=== PATIENT | male | born 1960 | race African-American/Black ===

== ENCOUNTER 2018-08-01 22:27 | Inpatient (IN) | payer OTHER ==
[~2018-08-01] VITALS: Ht 180.3 cm; Wt 63.7 kg
[2018-08-01 23:11] LABS: BASO % 0 % (0-3); EOS # 0.2 x10^3/uL (0.0-0.7); EOS % 3 % (0-3); HEMATOCRIT 43.9 % (39.0-53.0); HEMOGLOBIN 14.5 g/dL (13.0-17.5); LYMPH # 0.9 x10^3/uL (1.0-4.8); LYMPH % 15 % (24-48); MEAN CORPUSCULAR HEMOGLOBIN 32 pg (25-35); MEAN CORPUSCULAR HGB CONC 33 g/dL (31-37); MEAN CORPUSCULAR VOLUME 96 fL (79-100); MONO # 0.5 x10^3/uL (0.0-1.1); MONO % 8 % (0-9); NEUT # 4.3 x10^3uL (1.8-7.7); NEUT % 74 % (31-73); PLATELET COUNT 207 x10^3/uL (140-400); RED BLOOD COUNT 4.59 x10^6/uL (4.30-5.70); WHITE BLOOD COUNT 5.9 x10^3/uL (4.0-11.0)
[2018-08-01 23:20] LABS: CALCIUM 9.2 mg/dL (8.5-10.1); CREATININE 0.8 mg/dL (0.7-1.3); GFR 119.3; POTASSIUM 4.6 mmol/L (3.5-5.1)
[2018-08-01 23:26] LABS: ALBUMIN 3.6 g/dL (3.4-5.0); ALBUMIN/GLOBULIN RATIO 0.7 (1.0-1.7); MAGNESIUM 1.7 mg/dL (1.8-2.4); TOTAL BILIRUBIN 0.3 mg/dL (0.2-1.0); TOTAL PROTEIN 8.6 g/dL (6.4-8.2)
--- NOTE | 2018-08-01 23:26 | RAD ---
PQRS Compliance statement: One or more of the following individualized dose reduction techniques were utilized for this examination: 1. Automated exposure control. 2. Adjustment of the mA and/or kV according to patient size. 3. Use of iterative reconstruction technique. Indication:ams; drug abuse TECHNIQUE: CT head without IV contrast COMPARISON:None FINDINGS: No pathologic extra-axial or intra-axial fluid collection. The ventricles and basal cisterns are within normal limits. No acute intracranial bleed. No focal loss of hayes-white differentiation. Orbits are within normal limits. No suspicious calvarial lesion or acute calvarial fractures. Visualized paranasal sinuses and mastoid air cells are clear. IMPRESSION: No acute intracranial process. Indication:ams; drug abuse TECHNIQUE: CT of the cervical spine without IV contrast with multiplanar reformats. COMPARISON:None FINDINGS: Cervical spine is in normal anatomic alignment. Atlantoaxial joint interval is preserved with moderate degenerative changes. No compression deformities. Facet joints are in normal anatomic alignment with multilevel moderate facet arthropathy. No acute fractures. Noncontrast appearance of the neck soft tissue is within normal limits. IMPRESSION: 1. No acute fractures. 2. Multilevel mild degenerative disc disease with moderate facet arthropathy. Electronically signed by: Jose J So DO (08/01/2018 11:23 PM) [facility]
[2018-08-01] MEDS ORDERED: IV NORMAL SALINE 1000ML BAG 1,000 ML IV ONE (23:30)
--- NOTE | 2018-08-01 23:31 | RAD ---
Indication:AMS,WEAKNESS TECHNIQUE:Portable AP chest X-ray COMPARISON:None FINDINGS: Heart is normal in size. Lungs are clear. No pneumothorax or pleural effusion. Visualized bony thorax is within normal limits. IMPRESSION: No acute pulmonary process. Electronically signed by: Jose J So DO (08/01/2018 11:28 PM) [facility]
--- NOTE | 2018-08-01 23:42 | PHYS DOC ---
Past Medical History Past Medical History: Other Additional Past Medical Histor: CHRONIC NECK PAIN Past Surgical History: No Surgical History Alcohol Use: Heavy Additional Information: REPORTS DRINKING ETOH DAILY Drug Use: Cocaine, Marijuana, Methamphetamine, Phencyclidine Social History Narrative: PCP Adult General Chief Complaint Chief Complaint: ALTERED MENTAL STATUS [facility] HPI Patient is a 58 year old male who presents via EMS for altered mental status. Patient was found lying on the ground between 2 cars this evening. He states he was lying down to take an neck. He also had a fall earlier today where he landed on his left elbow. Patient states he used cocaine, methamphetamine, marijuana some point this afternoon. Denies any chest pain, nausea, vomiting, shortness of breath, diaphoresis. He is not complaining of any pain at this time. Review of Systems Review of Systems Constitutional: Denies fever or chills [] Eyes: Denies change in visual acuity, eye pain [] HENT: Denies nasal congestion or sore throat [] Respiratory: Denies cough or shortness of breath [] Cardiovascular: No additional information not addressed in HPI [] GI: Denies abdominal pain, nausea, vomiting. [] : Denies dysuria or hematuria [] Musculoskeletal: Denies back pain, reports left elbow and shoulder pain[] Integument: Denies rash or skin lesions [] Neurologic: Denies headache, or focal weakness[] Complete systems were reviewed and found to be within normal limits, except as documented in this note. Current Medications Current Medications Current Medications Medications (Trade) Dose Ordered Sig/Mohan Start Time Stop Time Status Last Admin Dose Admin Hydralazine HCl (Apresoline Inj) 10 mg 1X ONCE 08/02/18 01:00 08/02/18 01:01 DC 08/02/18 04:28 10 MG Labetalol HCl (Normodyne Iv Push) 20 mg 1X ONCE 08/02/18 00:30 08/02/18 00:31 DC 08/02/18 00:44 20 MG Lorazepam (Ativan) 1 mg 1X ONCE 08/02/18 00:30 08/02/18 00:31 DC 08/02/18 00:43 1 MG Magnesium Sulfate 50 ml @ 25 mls/hr 1X ONCE 08/02/18 00:30 08/02/18 02:29 DC 08/02/18 00:43 25 MLS/HR Sodium Chloride 1,000 ml @ 1,000 mls/hr 1X ONCE 08/02/18 00:30 08/02/18 01:29 Cancel Allergies Allergies Allergies Coded Allergies Type Severity Reaction Last Updated Verified No Known Drug Allergies 08/01/18 No Physical Exam Physical Exam Constitutional: Well developed, well nourished. [] HENT: Normocephalic, atraumatic. [] Eyes: PERRLA, EOMI, conjunctiva normal. [] Neck: Normal range of motion, no tenderness. [] Cardiovascular: Heart rate regular rhythm, no murmur [] Lungs & Thorax: Bilateral breath sounds clear to auscultation, no rhonchi's, Rales or wheezes. [] Abdomen: Bowel sounds normal, soft, no tenderness, no rebound rigidity or guarding. [] Skin: Warm, dry, no erythema, no rash. [] Back: No tenderness, no CVA tenderness. [] Extremities: Left elbow and shoulder tenderness with reduced range of motion, no clubbing. [] Neurologic: Alert and oriented to person and place but not time, CN 2 through 12 grossly intact bilaterally, no focal neurological deficit. [] Psychologic: Disoriented, lethargic[] Current Patient Data Vital Signs Vital Signs Date Time Temp Pulse Resp B/P (MAP) Pulse Ox O2 Delivery O2 Flow Rate FiO2 08/02/18 00:53 88 16 87 08/02/18 00:44 224/84 08/02/18 00:25 97.4 97.4 08/01/18 22:28 Room Air Lab Values Laboratory Tests Test 08/01/18 23:00 08/02/18 00:30 White Blood Count 5.9 x10^3/uL (4.0-11.0) Red Blood Count 4.59 x10^6/uL (4.30-5.70) Hemoglobin 14.5 g/dL (13.0-17.5) Hematocrit 43.9 % (39.0-53.0) Mean Corpuscular Volume 96 fL (79-100) Mean Corpuscular Hemoglobin 32 pg (25-35) Mean Corpuscular Hemoglobin Concent 33 g/dL (31-37) Red Cell Distribution Width 14.0 % (11.5-14.5) Platelet Count 207 x10^3/uL (140-400) Neutrophils (%) (Auto) 74 % (31-73) H Lymphocytes (%) (Auto) 15 % (24-48) L Monocytes (%) (Auto) 8 % (0-9) Eosinophils (%) (Auto) 3 % (0-3) Basophils (%) (Auto) 0 % (0-3) Neutrophils # (Auto) 4.3 x10^3uL (1.8-7.7) Lymphocytes # (Auto) 0.9 x10^3/uL (1.0-4.8) L Monocytes # (Auto) 0.5 x10^3/uL (0.0-1.1) Eosinophils # (Auto) 0.2 x10^3/uL (0.0-0.7) Basophils # (Auto) 0.0 x10^3/uL (0.0-0.2) Prothrombin Time 13.0 SEC (11.7-14.0) Prothrombin Time INR 1.0 (0.8-1.1) PTT 21 SEC (24-38) L Sodium Level 139 mmol/L (136-145) Potassium Level 4.6 mmol/L (3.5-5.1) Chloride Level 99 mmol/L (98-107) Carbon Dioxide Level 32 mmol/L (21-32) Anion Gap 8 (6-14) Blood Urea Nitrogen 16 mg/dL (8-26) Creatinine 0.8 mg/dL (0.7-1.3) Estimated GFR (Cockcroft-Gault) 119.3 BUN/Creatinine Ratio 20 (6-20) Glucose Level 129 mg/dL (70-99) H Lactic Acid Level 3.5 mmol/L (0.4-2.0) H Calcium Level 9.2 mg/dL (8.5-10.1) Magnesium Level 1.7 mg/dL (1.8-2.4) L Total Bilirubin 0.3 mg/dL (0.2-1.0) Aspartate Amino Transferase (AST) 18 U/L (15-37) Alanine Aminotransferase (ALT) 37 U/L (16-63) Alkaline Phosphatase 148 U/L (46-116) H Total Protein 8.6 g/dL (6.4-8.2) H Albumin 3.6 g/dL (3.4-5.0) Albumin/Globulin Ratio 0.7 (1.0-1.7) L Ethyl Alcohol Level < 10 mg/dL (0-10) Urine Collection Type U cath Urine Color Yellow Urine Clarity Cloudy Urine pH 5.5 Urine Specific [place] 1.020 Urine Protein 100 mg/dL (NEG-TRACE) Urine Glucose (UA) Negative mg/dL (NEG) Urine Ketones (Stick) Negative mg/dL (NEG) Urine Blood Small (NEG) Urine Nitrite Negative (NEG) Urine Bilirubin Negative (NEG) Urine Urobilinogen Dipstick 1.0 mg/dL (0.2 mg/dL) Urine Leukocyte Esterase Negative (NEG) Urine RBC 11-20 /HPF (0-2) Urine WBC 1-4 /HPF (0-4) Urine Squamous Epithelial Cells None /LPF Urine Amorphous Sediment Present /HPF Urine Bacteria 0 /HPF (0-FEW) Urine Hyaline Casts Many /HPF Urine Mucus Marked /LPF Urine Opiates Screen Neg (NEG) Urine Methadone Screen Neg (NEG) Urine Barbiturates Neg (NEG) Urine Phencyclidine Screen Pos (NEG) Urine Amphetamine/Methamphetamine Neg (NEG) Urine Benzodiazepines Screen Neg (NEG) Urine Cocaine Screen Neg (NEG) Urine Cannabinoids Screen Neg (NEG) Urine Ethyl Alcohol Neg (NEG) Laboratory Tests 08/01/18 23:00 Laboratory Tests 08/01/18 23:00 EKG EKG @2246 NSR at 93bpm, NO ST elevation, baseline artifact/wandering baseline, q wave V2 Radiology/Procedures Radiology/Procedures PROCEDURE: CT HEAD AND CERVICAL SPINE WO PQRS Compliance statement: One or more of the following individualized dose reduction techniques were utilized for this examination: 1. Automated exposure control. 2. Adjustment of the mA and/or kV according to patient size. 3. Use of iterative reconstruction technique. Indication:ams; drug abuse TECHNIQUE: CT head without IV contrast COMPARISON:None FINDINGS: No pathologic extra-axial or intra-axial fluid collection. The ventricles and basal cisterns are within normal limits. No acute intracranial bleed. No focal loss of hayes-white differentiation. Orbits are within normal limits. No suspicious calvarial lesion or acute calvarial fractures. Visualized paranasal sinuses and mastoid air cells are clear. IMPRESSION: No acute intracranial process. Indication:ams; drug abuse TECHNIQUE: CT of the cervical spine without IV contrast with multiplanar reformats. COMPARISON:None FINDINGS: Cervical spine is in normal anatomic alignment. Atlantoaxial joint interval is preserved with moderate degenerative changes. No compression deformities. Facet joints are in normal anatomic alignment with multilevel moderate facet arthropathy. No acute fractures. Noncontrast appearance of the neck soft tissue is within normal limits. IMPRESSION: 1. No acute fractures. 2. Multilevel mild degenerative disc disease with moderate facet arthropathy. Electronically signed by: Jose J So DO (08/01/2018 11:23 PM) [facility] PROCEDURE: CHEST AP ONLY Indication:AMS,WEAKNESS TECHNIQUE:Portable AP chest X-ray COMPARISON:None FINDINGS: Heart is normal in size. Lungs are clear. No pneumothorax or pleural effusion. Visualized bony thorax is within normal limits. IMPRESSION: No acute pulmonary process. Electronically signed by: Jose J So DO (08/01/2018 11:28 PM) [facility] DICTATED and SIGNED BY: JOSE J SO DO PROCEDURE: SHOULDER 2+V LEFT 4 view left elbow HISTORY: Pain and drug abuse AP lateral oblique and radial head views of the left elbow were obtained The visualized osseous structures appear normal. IMPRESSION: No acute findings. End impression 2 views left shoulder: AP and Y views The visualized osseous structures appear normal. The glenohumeral relationship is normal. IMPRESSION: No acute findings. Electronically signed by: Justina Husain III, MD (08/02/2018 2:13 AM) [facility] [place] DICTATED and SIGNED BY: JUSTINA HUSAIN III, MD PROCEDURE: ELBOW LEFT 3V 4 view left elbow HISTORY: Pain and drug abuse AP lateral oblique and radial head views of the left elbow were obtained The visualized osseous structures appear normal. IMPRESSION: No acute findings. End impression 2 views left shoulder: AP and Y views The visualized osseous structures appear normal. The glenohumeral relationship is normal. IMPRESSION: No acute findings. Electronically signed by: Justina Husain III, MD (08/02/2018 2:13 AM) [facility] [place] DICTATED and SIGNED BY: JUSTINA HUSAIN III, MD[] Course & Med Decision Making Course & Med Decision Making 58-year-old male presented to the ER via EMS after being found lying between 2 [place] a park. Patient was brought to room and evaluated. Initially found to be hypothermic. Bearhugger and warming blankets were placed on patient. Patient did report using multiple drugs. Pertinent Labs and Imaging studies reviewed. Patient was hypertensive therefore given blood pressure medication to help control pressure. Breathing treatments initiated for intermittent hypoxia. Patient requiring admission for further evaluation and treatment. Discussed with (hospitalist) who is in agreement with admission. Discussed findings and plan with patient and family, who acknowledge understanding and agreement.( See chart for details) [] Dragon Disclaimer Dragon Disclaimer This electronic medical record was generated, in whole or in part, using a voice recognition dictation system. Departure Departure Referrals: UNKNOWN PCP NAME (PCP) GRAHAM GARCIA DO Aug 01, 2018 23:42
[2018-08-02] MEDS ORDERED: IV NORMAL SALINE 1000ML BAG 1,000 ML IV ONE ×2 (00:15→00:30)
[2018-08-02] MEDS ORDERED: MAGNESIUM SULFATE 2GM 50 ML IV ONE ×2 (00:30→10:00)
[2018-08-02] MEDS ORDERED: LABETALOL 20 MG/4 ML DISP.SYRIN. IVP ONE (00:30)
[2018-08-02 00:42] LABS: BILIRUBIN,URINE NEGATIVE (NEG); CLARITY,URINE CLOUDY; COLOR,URINE YELLOW; NITRITE,URINE NEGATIVE (NEG); PH,URINE 5.5; PROTEIN,URINE 100 mg/dL (NEG-TRACE)
[2018-08-02 00:49] LABS: AMPHETAMINE/METHAMPHETAMINE NEG (NEG); BARBITURATES NEG (NEG); BENZODIAZEPINES NEG (NEG); CANNABINOIDS NEG (NEG); COCAINE NEG (NEG); METHADONE NEG (NEG); OPIATES NEG (NEG); PHENCYCLIDINE POS (NEG)
[2018-08-02 00:53] LABS: BACTERIA,URINE 0 /HPF (0-FEW)
[2018-08-02 00:54] LABS: AMORPHOUS SEDIMENT,UR PRESENT /HPF; HYALINE CASTS, URINE MANY /HPF
[2018-08-02] MEDS ORDERED: hydrALAZINE 20 MG/ML VIAL. IVP ONE ×2 (01:00→06:30)
--- NOTE | 2018-08-02 02:16 | RAD ---
4 view left elbow HISTORY: Pain and drug abuse AP lateral oblique and radial head views of the left elbow were obtained The visualized osseous structures appear normal. IMPRESSION: No acute findings. End impression 2 views left shoulder: AP and Y views The visualized osseous structures appear normal. The glenohumeral relationship is normal. IMPRESSION: No acute findings. Electronically signed by: Owen Lew III, MD (08/02/2018 2:13 AM) [facility]
[2018-08-02] MEDS ORDERED: ONDANSETRON PF 4 MG/2 ML VIAL. IV PRN ×2 (04:00→10:00)
[2018-08-02] MEDS: ALBUTEROL SULFATE 2.5 MG/3 ML NEBU. NEB PRN (04:35)
[2018-08-02] MEDS ORDERED: NITROGLYCERIN OINT 1 GM PACKET. ONE (04:46)
[2018-08-02] MEDS ORDERED: NITROGLYCERIN OINT 1 GM PACKET. TP ONE (05:00)
--- NOTE | 2018-08-02 05:56 | EKG ---
[facility] [address] [place] [address] Test Date: 2018-08-01 Test Time: 22:46:02 Pat Name: DIANE CABRERA Department: Room: 650 1 Gender: M Mental Health Director: : 1960 Requested By: GRAHAM GARCIA Order Number: [id number] Reading MD: Cooper José MD Measurements Intervals [place] Rate: 93 P: 90 LA: 164 QRS: -74 QRSD: 106 T: 98 QT: 378 QTc: 473 Interpretive Statements SINUS RHYTHM LAD CONSIDER LATERAL WALL ISCHEMIA Electronically Signed On 08-02-2018 8:45:30 CDT by Cooper José MD
[2018-08-02] MEDS ORDERED: hydrALAZINE 20 MG/ML VIAL. ONE (06:12)
[2018-08-02 06:30] VITALS: BP 149/67
--- NOTE | 2018-08-02 09:03 | RAD ---
CHEST AP ONLY History: DYSPNEA. Comparison with August 01, 2018. Cardiomediastinal silhouette is stable. No evidence of pneumothorax or pleural effusion. No evidence of airspace disease. IMPRESSION: No consolidating infiltrate. Electronically signed by: Ariel Kong MD (08/02/2018 9:00 AM) [facility]
[2018-08-02] MEDS ORDERED: MULTIVIT INFUSN,ADULT 4,VIT K 10 ML, THIAMINE INJ 100 MG, FOLIC ACID INJ 1 MG in IV NOR... IV SCH (10:00)
[2018-08-02] MEDS ORDERED: MAG HYDROX/ALUMINUM HYD/SIMETH 30 ML ORAL.SUSP PO PRN (10:00)
[2018-08-02] MEDS ORDERED: guaiFENesin ORAL 200 MG/10 ML LIQUID. PO PRN (10:00)
[2018-08-02] MEDS ORDERED: DOCUSATE SODIUM 100 MG CAPSULE. PO PRN (10:00)
[2018-08-02] MEDS ORDERED: cloNIDine HCL 0.1 MG TABLET PO PRN (10:00)
[2018-08-02] MEDS ORDERED: SODIUM PHOSPHATES 19/7GM 133 ML ENEMA. PR PRN (10:00)
[2018-08-02] MEDS ORDERED: ACETAMINOPHEN 325 MG TABLET. PO PRN (10:00)
[2018-08-02] MEDS ORDERED: diphenhydrAMINE 50 MG/ML VIAL IVP PRN (10:00)
[2018-08-02] MEDS ORDERED: ZOLPIDEM 5 MG TABLET. PO PRN (10:00)
[2018-08-02] MEDS: IPRATRPIUM/ALBUTEROL 0.5/2.5MG 3 ML NEBU. NEB SCH ×4 (10:12→23:19)
[2018-08-02 10:42] LABS: BASO % 0 % (0-3); EOS # 0.1 x10^3/uL (0.0-0.7); EOS % 1 % (0-3); HEMATOCRIT 41.1 % (39.0-53.0); HEMOGLOBIN 13.4 g/dL (13.0-17.5); LYMPH # 0.9 x10^3/uL (1.0-4.8); LYMPH % 12 % (24-48); MEAN CORPUSCULAR HEMOGLOBIN 31 pg (25-35); MEAN CORPUSCULAR HGB CONC 33 g/dL (31-37); MEAN CORPUSCULAR VOLUME 96 fL (79-100); MONO # 0.5 x10^3/uL (0.0-1.1); MONO % 6 % (0-9); NEUT # 5.9 x10^3uL (1.8-7.7); NEUT % 81 % (31-73); PLATELET COUNT 228 x10^3/uL (140-400); RED BLOOD COUNT 4.29 x10^6/uL (4.30-5.70); RED CELL DISTRIBUTION WIDTH 13.8 % (11.5-14.5); WHITE BLOOD COUNT 7.4 x10^3/uL (4.0-11.0)
[2018-08-02] MEDS: methylPREDNISolone SOD SUCC PF 125 MG/2 ML VIAL. IV SCH ×3 (10:59→22:00)
[2018-08-02 11:00] VITALS: BP 156/60
[2018-08-02 11:06] LABS: ALBUMIN 3.2 g/dL (3.4-5.0); ALBUMIN/GLOBULIN RATIO 0.7 (1.0-1.7); CALCIUM 8.8 mg/dL (8.5-10.1); CREATININE 0.6 mg/dL (0.7-1.3); GFR 166.3; POTASSIUM 4.1 mmol/L (3.5-5.1); TOTAL BILIRUBIN 0.5 mg/dL (0.2-1.0); TOTAL PROTEIN 7.5 g/dL (6.4-8.2)
[2018-08-02 11:17] LABS: FREE T4 1.3 ng/dL (0.76-1.46); THYROID STIM HORMONE (TSH) 0.269 uIU/mL (0.358-3.74)
[2018-08-02] MEDS ORDERED: IPRATRPIUM/ALBUTEROL 0.5/2.5MG 3 ML NEBU. NEB SCH (12:00)
--- NOTE | 2018-08-02 12:33 | NUR ---
SS following for discharge planning. SS reviewed pt chart. Pt is from home. Pt has history of current and past substance abuse. PAT team consulted. Waldemar from the PAT team met with pt and pt declined any need for treatment at this time. Waldemar provided pt with resources for Rediscover, Narcotics Anonymous, and preferred providers with [employer]. Pt accepted resources and stated he will discharge to home.
--- NOTE | 2018-08-02 14:54 | PDOC1 ---
History and Physical Date of Admission Date of Admission 08/02/2018 Identification/Chief Complaint Chief Complaint I cannot breathe Problems: (1) Altered mental status (2) PCP abuse Source Source: Chart review, Patient History of Present Illness History of Present Illness Patient is a 58-year-old gentleman with significant past medical history for asthma who was in his usual state of health until the day prior to his admission when he indulges in some PCP with his friends. The patient was brought by his friends to the emergency department for decrease in sensorium. The patient does not recall the events that led to his admission. He is very short of breath at the time my evaluation fairly able to finish a sentence due to the respiratory distress. The patient has bronchospasm audible and increased work of breathing. Plan of care has been Explained in detail very little information can be gathered from the patient due to his acute respiratory distress. He keeps wanting to be dismissed from the hospital, given his respiratory distress I have encourage him to stay to get treated. Patient most likely inhale his PCP and gave him this bronchospasm due to his underlying reactive airway disease. No headache no blurred vision no chest pain or palpitations have been voiced by the patient no nausea vomiting no diarrhea no abdominal discomfort, no other complaints voiced during my visit is being admitted for further evaluation treatment ER history: HPI HPI Patient is a 58 year old male who presents via EMS for altered mental status. Patient was found lying on the ground between 2 cars this evening. He states he was lying down to take an neck. He also had a fall earlier today where he landed on his left elbow. Patient states he used cocaine, methamphetamine, marijuana some point this afternoon. Denies any chest pain, nausea, vomiting, shortness of breath, diaphoresis. He is not complaining of any pain at this time. Past Medical History Pulmonary: Asthma Past Surgical History Past Surgical History: No pertinent history Family History Family History: Other (reviewed and found noncontributory to the present) Social History Smoke: No ALCOHOL: none Drugs: Other (PCP) Current Medications Current Medications Current Medications Medications (Trade) Dose Ordered Sig/Mohan Start Time Stop Time Status Last Admin Dose Admin Acetaminophen (Tylenol) 650 mg PRN Q4HRS PRN 08/02/18 10:00 Al Hydroxide/Mg Hydroxide (Mylanta Plus Xs) 30 ml PRN DAILY PRN 08/02/18 10:00 Albuterol Sulfate (Ventolin Neb Soln) 2.5 mg PRN Q4HRS PRN 08/02/18 04:45 08/02/18 04:35 2.5 MG Albuterol/ Ipratropium (Duoneb) 3 ml RTQID 08/02/18 12:00 UNV Clonidine HCl (Catapres) 0.1 mg PRN Q6HRS PRN 08/02/18 10:00 Diphenhydramine HCl (Benadryl) 25 mg PRN Q4HRS PRN 08/02/18 10:00 Docusate Sodium (Colace) 100 mg PRN BID PRN 08/02/18 10:00 Guaifenesin (Robitussin) 200 mg PRN Q4HRS PRN 08/02/18 10:00 Hydralazine HCl (Apresoline Inj) 20 mg STK-MED ONCE 08/02/18 06:12 08/02/18 06:13 DC Labetalol HCl (Normodyne Iv Push) 20 mg 1X ONCE 08/02/18 00:30 08/02/18 00:31 DC 08/02/18 00:44 20 MG Lorazepam (Ativan) 2 mg PRN Q4HRS PRN 08/02/18 10:00 08/02/18 10:59 2 MG Magnesium Sulfate 50 ml @ 25 mls/hr 1X ONCE 08/02/18 10:00 08/02/18 11:59 DC Methylprednisolone Sodium Succinate (SOLU-Medrol 125MG VIAL) 125 mg Q8HRS 08/02/18 10:00 08/02/18 10:59 125 MG Multivitamins 10 ml/Thiamine HCl 100 mg/Folic Acid 1 mg/Sodium Chloride 1,011.2 ml @ 125 mls/ hr Q8H 08/02/18 10:00 08/02/18 10:28 DC 08/02/18 10:28 125 MLS/HR Nitroglycerin (Nitro-Bid Oint) 1 inch 1X ONCE 08/02/18 05:00 08/02/18 05:02 DC 08/02/18 04:50 1 INCH Ondansetron HCl (Zofran) 4 mg PRN Q4HRS PRN 08/02/18 10:00 Sodium Monofluorophosphate (Fleet Adult) 133 ml PRN DAILY PRN 08/02/18 10:00 Sodium Chloride 1,000 ml @ 1,000 mls/hr 1X ONCE 08/02/18 00:30 08/02/18 01:29 Cancel Zolpidem Tartrate (Ambien) 5 mg PRN QHS PRN 08/02/18 10:00 Allergies Allergies Allergies Coded Allergies Type Severity Reaction Last Updated Verified No Known Drug Allergies 08/01/18 No ROS Review of System CONSTITUTIONAL: No fever or chills EYES: No recent changes SKIN: No rash or itching CARDIOVASCULAR: No chest pain, syncope, palpitations, or edema RESPIRATORY: No SOB or cough GASTROINTESTINAL: No nausea, vomiting or abdominal pain NEUROLOGICAL: No headaches or weakness ENDOCRINE: No cold or heat intolerance GENITOURINARY: No urgency or frequency of urination MUSCULOSKELETAL: No back pain or joint pain LYMPHATICS: No enlarged lymph nodes PSYCHIATRIC: No anxiety or depression Physical Exam Physical Exam GEN.: No apparent distress. Alert and oriented. HEENT: Head is normocephalic, atraumatic NECK: Supple. LUNGS: Clear to auscultation. HEART: RRR, S1, S2 present. Peripheral pulses intact ABDOMEN: Soft, nontender. Positive bowel sounds. EXTREMITIES: Without any cyanosis. NEUROLOGIC: Normal speech, normal tone PSYCHIATRIC: Normal affect, normal mood. SKIN: No ulcerations Vitals Vitals Vital Signs Date Time Temp Pulse Resp B/P (MAP) Pulse Ox O2 Delivery O2 Flow Rate FiO2 08/02/18 11:00 98.0 115 18 156/60 (92) 94 98.0 08/02/18 10:02 Nasal Cannula 2.0 Labs Labs Laboratory Tests Test 08/01/18 23:00 08/02/18 00:30 08/02/18 06:25 08/02/18 10:07 White Blood Count 5.9 x10^3/uL (4.0-11.0) 7.4 x10^3/uL (4.0-11.0) Red Blood Count 4.59 x10^6/uL (4.30-5.70) 4.29 x10^6/uL (4.30-5.70) Hemoglobin 14.5 g/dL (13.0-17.5) 13.4 g/dL (13.0-17.5) Hematocrit 43.9 % (39.0-53.0) 41.1 % (39.0-53.0) Mean Corpuscular Volume 96 fL (79-100) 96 fL (79-100) Mean Corpuscular Hemoglobin 32 pg (25-35) 31 pg (25-35) Mean Corpuscular Hemoglobin Concent 33 g/dL (31-37) 33 g/dL (31-37) Red Cell Distribution Width 14.0 % (11.5-14.5) 13.8 % (11.5-14.5) Platelet Count 207 x10^3/uL (140-400) 228 x10^3/uL (140-400) Neutrophils (%) (Auto) 74 % (31-73) 81 % (31-73) Lymphocytes (%) (Auto) 15 % (24-48) 12 % (24-48) Monocytes (%) (Auto) 8 % (0-9) 6 % (0-9) Eosinophils (%) (Auto) 3 % (0-3) 1 % (0-3) Basophils (%) (Auto) 0 % (0-3) 0 % (0-3) Neutrophils # (Auto) 4.3 x10^3uL (1.8-7.7) 5.9 x10^3uL (1.8-7.7) Lymphocytes # (Auto) 0.9 x10^3/uL (1.0-4.8) 0.9 x10^3/uL (1.0-4.8) Monocytes # (Auto) 0.5 x10^3/uL (0.0-1.1) 0.5 x10^3/uL (0.0-1.1) Eosinophils # (Auto) 0.2 x10^3/uL (0.0-0.7) 0.1 x10^3/uL (0.0-0.7) Basophils # (Auto) 0.0 x10^3/uL (0.0-0.2) 0.0 x10^3/uL (0.0-0.2) Prothrombin Time 13.0 SEC (11.7-14.0) Prothromb Time International Ratio 1.0 (0.8-1.1) Activated Partial Thromboplast Time 21 SEC (24-38) Sodium Level 139 mmol/L (136-145) 138 mmol/L (136-145) Potassium Level 4.6 mmol/L (3.5-5.1) 4.1 mmol/L (3.5-5.1) Chloride Level 99 mmol/L (98-107) 101 mmol/L (98-107) Carbon Dioxide Level 32 mmol/L (21-32) 29 mmol/L (21-32) Anion Gap 8 (6-14) 8 (6-14) Blood Urea Nitrogen 16 mg/dL (8-26) 13 mg/dL (8-26) Creatinine 0.8 mg/dL (0.7-1.3) 0.6 mg/dL (0.7-1.3) Estimated GFR (Cockcroft-Gault) 119.3 166.3 BUN/Creatinine Ratio 20 (6-20) 22 (6-20) Glucose Level 129 mg/dL (70-99) 103 mg/dL (70-99) Lactic Acid Level 3.5 mmol/L (0.4-2.0) 1.4 mmol/L (0.4-2.0) Calcium Level 9.2 mg/dL (8.5-10.1) 8.8 mg/dL (8.5-10.1) Magnesium Level 1.7 mg/dL (1.8-2.4) Total Bilirubin 0.3 mg/dL (0.2-1.0) 0.5 mg/dL (0.2-1.0) Aspartate Amino Transf (AST/SGOT) 18 U/L (15-37) 20 U/L (15-37) Alanine Aminotransferase (ALT/SGPT) 37 U/L (16-63) 39 U/L (16-63) Alkaline Phosphatase 148 U/L (46-116) 129 U/L (46-116) Total Protein 8.6 g/dL (6.4-8.2) 7.5 g/dL (6.4-8.2) Albumin 3.6 g/dL (3.4-5.0) 3.2 g/dL (3.4-5.0) Albumin/Globulin Ratio 0.7 (1.0-1.7) 0.7 (1.0-1.7) Ethyl Alcohol Level < 10 mg/dL (0-10) Urine Collection Type U cath Urine Color Yellow Urine Clarity Cloudy Urine pH 5.5 Urine Specific [place] 1.020 Urine Protein 100 mg/dL (NEG-TRACE) Urine Glucose (UA) Negative mg/dL (NEG) Urine Ketones (Stick) Negative mg/dL (NEG) Urine Blood Small (NEG) Urine Nitrite Negative (NEG) Urine Bilirubin Negative (NEG) Urine Urobilinogen Dipstick 1.0 mg/dL (0.2 mg/dL) Urine Leukocyte Esterase Negative (NEG) Urine RBC 11-20 /HPF (0-2) Urine WBC 1-4 /HPF (0-4) Urine Squamous Epithelial Cells None /LPF Urine Amorphous Sediment Present /HPF Urine Bacteria 0 /HPF (0-FEW) Urine Hyaline Casts Many /HPF Urine Mucus Marked /LPF Urine Opiates Screen Neg (NEG) Urine Methadone Screen Neg (NEG) Urine Barbiturates Neg (NEG) Urine Phencyclidine Screen Pos (NEG) Urine Amphetamine/Methamphetamine Neg (NEG) Urine Benzodiazepines Screen Neg (NEG) Urine Cocaine Screen Neg (NEG) Urine Cannabinoids Screen Neg (NEG) Urine Ethyl Alcohol Neg (NEG) Troponin I Quantitative < 0.017 ng/mL (0.000-0.055) 0.020 ng/mL (0.000-0.055) NG-Exs-K-Type Natriuretic Peptide 180 pg/mL (0-124) Vitamin B12 Level 495 pg/mL (247-911) Thyroid Stimulating Hormone (TSH) 0.269 uIU/mL (0.358-3.74) Free Thyroxine 1.30 ng/dL (0.76-1.46) Laboratory Tests Test 08/01/18 23:00 08/02/18 00:30 08/02/18 06:25 08/02/18 10:07 White Blood Count 5.9 x10^3/uL (4.0-11.0) 7.4 x10^3/uL (4.0-11.0) Red Blood Count 4.59 x10^6/uL (4.30-5.70) 4.29 x10^6/uL (4.30-5.70) Hemoglobin 14.5 g/dL (13.0-17.5) 13.4 g/dL (13.0-17.5) Hematocrit 43.9 % (39.0-53.0) 41.1 % (39.0-53.0) Mean Corpuscular Volume 96 fL (79-100) 96 fL (79-100) Mean Corpuscular Hemoglobin 32 pg (25-35) 31 pg (25-35) Mean Corpuscular Hemoglobin Concent 33 g/dL (31-37) 33 g/dL (31-37) Red Cell Distribution Width 14.0 % (11.5-14.5) 13.8 % (11.5-14.5) Platelet Count 207 x10^3/uL (140-400) 228 x10^3/uL (140-400) Neutrophils (%) (Auto) 74 % (31-73) 81 % (31-73) Lymphocytes (%) (Auto) 15 % (24-48) 12 % (24-48) Monocytes (%) (Auto) 8 % (0-9) 6 % (0-9) Eosinophils (%) (Auto) 3 % (0-3) 1 % (0-3) Basophils (%) (Auto) 0 % (0-3) 0 % (0-3) Neutrophils # (Auto) 4.3 x10^3uL (1.8-7.7) 5.9 x10^3uL (1.8-7.7) Lymphocytes # (Auto) 0.9 x10^3/uL (1.0-4.8) 0.9 x10^3/uL (1.0-4.8) Monocytes # (Auto) 0.5 x10^3/uL (0.0-1.1) 0.5 x10^3/uL (0.0-1.1) Eosinophils # (Auto) 0.2 x10^3/uL (0.0-0.7) 0.1 x10^3/uL (0.0-0.7) Basophils # (Auto) 0.0 x10^3/uL (0.0-0.2) 0.0 x10^3/uL (0.0-0.2) Prothrombin Time 13.0 SEC (11.7-14.0) Prothromb Time International Ratio 1.0 (0.8-1.1) Activated Partial Thromboplast Time 21 SEC (24-38) Sodium Level 139 mmol/L (136-145) 138 mmol/L (136-145) Potassium Level 4.6 mmol/L (3.5-5.1) 4.1 mmol/L (3.5-5.1) Chloride Level 99 mmol/L (98-107) 101 mmol/L (98-107) Carbon Dioxide Level 32 mmol/L (21-32) 29 mmol/L (21-32) Anion Gap 8 (6-14) 8 (6-14) Blood Urea Nitrogen 16 mg/dL (8-26) 13 mg/dL (8-26) Creatinine 0.8 mg/dL (0.7-1.3) 0.6 mg/dL (0.7-1.3) Estimated GFR (Cockcroft-Gault) 119.3 166.3 BUN/Creatinine Ratio 20 (6-20) 22 (6-20) Glucose Level 129 mg/dL (70-99) 103 mg/dL (70-99) Lactic Acid Level 3.5 mmol/L (0.4-2.0) 1.4 mmol/L (0.4-2.0) Calcium Level 9.2 mg/dL (8.5-10.1) 8.8 mg/dL (8.5-10.1) Magnesium Level 1.7 mg/dL (1.8-2.4) Total Bilirubin 0.3 mg/dL (0.2-1.0) 0.5 mg/dL (0.2-1.0) Aspartate Amino Transf (AST/SGOT) 18 U/L (15-37) 20 U/L (15-37) Alanine Aminotransferase (ALT/SGPT) 37 U/L (16-63) 39 U/L (16-63) Alkaline Phosphatase 148 U/L (46-116) 129 U/L (46-116) Total Protein 8.6 g/dL (6.4-8.2) 7.5 g/dL (6.4-8.2) Albumin 3.6 g/dL (3.4-5.0) 3.2 g/dL (3.4-5.0) Albumin/Globulin Ratio 0.7 (1.0-1.7) 0.7 (1.0-1.7) Ethyl Alcohol Level < 10 mg/dL (0-10) Urine Collection Type U cath Urine Color Yellow Urine Clarity Cloudy Urine pH 5.5 Urine Specific [place] 1.020 Urine Protein 100 mg/dL (NEG-TRACE) Urine Glucose (UA) Negative mg/dL (NEG) Urine Ketones (Stick) Negative mg/dL (NEG) Urine Blood Small (NEG) Urine Nitrite Negative (NEG) Urine Bilirubin Negative (NEG) Urine Urobilinogen Dipstick 1.0 mg/dL (0.2 mg/dL) Urine Leukocyte Esterase Negative (NEG) Urine RBC 11-20 /HPF (0-2) Urine WBC 1-4 /HPF (0-4) Urine Squamous Epithelial Cells None /LPF Urine Amorphous Sediment Present /HPF Urine Bacteria 0 /HPF (0-FEW) Urine Hyaline Casts Many /HPF Urine Mucus Marked /LPF Urine Opiates Screen Neg (NEG) Urine Methadone Screen Neg (NEG) Urine Barbiturates Neg (NEG) Urine Phencyclidine Screen Pos (NEG) Urine Amphetamine/Methamphetamine Neg (NEG) Urine Benzodiazepines Screen Neg (NEG) Urine Cocaine Screen Neg (NEG) Urine Cannabinoids Screen Neg (NEG) Urine Ethyl Alcohol Neg (NEG) Troponin I Quantitative < 0.017 ng/mL (0.000-0.055) 0.020 ng/mL (0.000-0.055) HI-Xzg-S-Type Natriuretic Peptide 180 pg/mL (0-124) Vitamin B12 Level 495 pg/mL (247-911) Thyroid Stimulating Hormone (TSH) 0.269 uIU/mL (0.358-3.74) Free Thyroxine 1.30 ng/dL (0.76-1.46) VTE Prophylaxis Ordered VTE Prophylaxis Devices: No VTE Pharmacological Prophylaxi: Yes Assessment/Plan Assessment/Plan Altered mental status secondary to BCP use currently result Acute hypoxemic respiratory failure secondary to severe bronchospasm Reactive airway disease/asthma polysubstance drug abuse Plan: We'll start steroids and will give nebulization therapy Counseling done regarding the noxious effect of drugs especially inhaled ones given his reactive airway disease Encourage oral intake Reassess in the a.m. Further recommendations based on the clinical course AZALIA SEGURA MD Aug 02, 2018 14:54
[2018-08-02 15:00] VITALS: BP 150/66
[2018-08-02 19:30] VITALS: BP 144/67
--- NOTE | 2018-08-02 19:46 | NUR ---
Patient started becoming verbally aggressive around 1700 this evening. Attempts were made to find him a place that he could discharge to. He stated that we was in acute rehab and wants to go back. After finding the facility that we was rehabilitating in, they stated that he left yesterday evening in a van with an unknown female to do drugs. Once he never came back, they discharged him AMA. The nursing quality assurance supervisor there stated that they will not accept the patient back. After searching for family members, his was finally able to be reached via telephone. She stated that she will come and pick the patient up and take him home. Dr. Arthur was contacted via telephone by this RN and given a verbal order to discharge the patient. At this time his has not shown up to pick him up but she states that she is coming. The patient is patiently waiting for his . The situation has been explained to ULYSSES Oh who is taking him tonight and she is will handle his care from here on. Nursing quality assurance supervisor Jeannie has assisted in the situation and we are working to get him home.
[2018-08-02] MEDS: LORazepam 0.5 MG TABLET PO PRN (20:01)
[2018-08-02] MEDS ORDERED: HALOPERIDOL 5 MG TABLET. PO PRN (21:45)
[2018-08-02] MEDS ORDERED: MELOXICAM 7.5 MG TABLET PO ONE (22:00)
[2018-08-03] MEDS: IPRATRPIUM/ALBUTEROL 0.5/2.5MG 3 ML NEBU. NEB SCH ×2 (03:57→08:12)
[2018-08-03] MEDS: ALBUTEROL SULFATE 2.5 MG/3 ML NEBU. NEB PRN (05:27)
[2018-08-03] MEDS: methylPREDNISolone SOD SUCC PF 125 MG/2 ML VIAL. IV SCH (05:47)
[2018-08-03 06:50] VITALS: BP 133/70
[2018-08-03] MEDS: LORazepam 0.5 MG TABLET PO PRN (07:17)
[2018-08-03] MEDS ORDERED: MELOXICAM 7.5 MG TABLET PO SCH (09:00)
--- NOTE | 2018-08-03 09:33 | PDOC3 ---
Discharge Summary Visit Information Date of Admission: Aug 02, 2018 Date of Discharge: Aug 03, 2018 Admitting Diagnosis: PCP abuse Final Diagnosis Altered mental status secondary to BCP use currently result Acute hypoxemic respiratory failure secondary to severe bronchospasm Reactive airway disease/asthma polysubstance drug abuse Brief Hospital Course Allergies Allergies Coded Allergies Type Severity Reaction Last Updated Verified No Known Drug Allergies 08/01/18 No Vital Signs Vital Signs Date Time Temp Pulse Resp B/P (MAP) Pulse Ox O2 Delivery O2 Flow Rate FiO2 08/03/18 08:13 97 Room Air 08/03/18 06:50 98.0 116 16 133/70 (91) 98.0 08/02/18 20:15 2.0 Lab Results Laboratory Tests Test 08/01/18 23:00 08/02/18 00:30 08/02/18 06:25 08/02/18 10:07 White Blood Count 5.9 x10^3/uL (4.0-11.0) 7.4 x10^3/uL (4.0-11.0) Red Blood Count 4.59 x10^6/uL (4.30-5.70) 4.29 x10^6/uL (4.30-5.70) Hemoglobin 14.5 g/dL (13.0-17.5) 13.4 g/dL (13.0-17.5) Hematocrit 43.9 % (39.0-53.0) 41.1 % (39.0-53.0) Mean Corpuscular Volume 96 fL (79-100) 96 fL (79-100) Mean Corpuscular Hemoglobin 32 pg (25-35) 31 pg (25-35) Mean Corpuscular Hemoglobin Concent 33 g/dL (31-37) 33 g/dL (31-37) Red Cell Distribution Width 14.0 % (11.5-14.5) 13.8 % (11.5-14.5) Platelet Count 207 x10^3/uL (140-400) 228 x10^3/uL (140-400) Neutrophils (%) (Auto) 74 % (31-73) 81 % (31-73) Lymphocytes (%) (Auto) 15 % (24-48) 12 % (24-48) Monocytes (%) (Auto) 8 % (0-9) 6 % (0-9) Eosinophils (%) (Auto) 3 % (0-3) 1 % (0-3) Basophils (%) (Auto) 0 % (0-3) 0 % (0-3) Neutrophils # (Auto) 4.3 x10^3uL (1.8-7.7) 5.9 x10^3uL (1.8-7.7) Lymphocytes # (Auto) 0.9 x10^3/uL (1.0-4.8) 0.9 x10^3/uL (1.0-4.8) Monocytes # (Auto) 0.5 x10^3/uL (0.0-1.1) 0.5 x10^3/uL (0.0-1.1) Eosinophils # (Auto) 0.2 x10^3/uL (0.0-0.7) 0.1 x10^3/uL (0.0-0.7) Basophils # (Auto) 0.0 x10^3/uL (0.0-0.2) 0.0 x10^3/uL (0.0-0.2) Prothrombin Time 13.0 SEC (11.7-14.0) Prothromb Time International Ratio 1.0 (0.8-1.1) Activated Partial Thromboplast Time 21 SEC (24-38) Sodium Level 139 mmol/L (136-145) 138 mmol/L (136-145) Potassium Level 4.6 mmol/L (3.5-5.1) 4.1 mmol/L (3.5-5.1) Chloride Level 99 mmol/L (98-107) 101 mmol/L (98-107) Carbon Dioxide Level 32 mmol/L (21-32) 29 mmol/L (21-32) Anion Gap 8 (6-14) 8 (6-14) Blood Urea Nitrogen 16 mg/dL (8-26) 13 mg/dL (8-26) Creatinine 0.8 mg/dL (0.7-1.3) 0.6 mg/dL (0.7-1.3) Estimated GFR (Cockcroft-Gault) 119.3 166.3 BUN/Creatinine Ratio 20 (6-20) 22 (6-20) Glucose Level 129 mg/dL (70-99) 103 mg/dL (70-99) Lactic Acid Level 3.5 mmol/L (0.4-2.0) 1.4 mmol/L (0.4-2.0) Calcium Level 9.2 mg/dL (8.5-10.1) 8.8 mg/dL (8.5-10.1) Magnesium Level 1.7 mg/dL (1.8-2.4) Total Bilirubin 0.3 mg/dL (0.2-1.0) 0.5 mg/dL (0.2-1.0) Aspartate Amino Transf (AST/SGOT) 18 U/L (15-37) 20 U/L (15-37) Alanine Aminotransferase (ALT/SGPT) 37 U/L (16-63) 39 U/L (16-63) Alkaline Phosphatase 148 U/L (46-116) 129 U/L (46-116) Total Protein 8.6 g/dL (6.4-8.2) 7.5 g/dL (6.4-8.2) Albumin 3.6 g/dL (3.4-5.0) 3.2 g/dL (3.4-5.0) Albumin/Globulin Ratio 0.7 (1.0-1.7) 0.7 (1.0-1.7) Ethyl Alcohol Level < 10 mg/dL (0-10) Urine Collection Type U cath Urine Color Yellow Urine Clarity Cloudy Urine pH 5.5 Urine Specific [place] 1.020 Urine Protein 100 mg/dL (NEG-TRACE) Urine Glucose (UA) Negative mg/dL (NEG) Urine Ketones (Stick) Negative mg/dL (NEG) Urine Blood Small (NEG) Urine Nitrite Negative (NEG) Urine Bilirubin Negative (NEG) Urine Urobilinogen Dipstick 1.0 mg/dL (0.2 mg/dL) Urine Leukocyte Esterase Negative (NEG) Urine RBC 11-20 /HPF (0-2) Urine WBC 1-4 /HPF (0-4) Urine Squamous Epithelial Cells None /LPF Urine Amorphous Sediment Present /HPF Urine Bacteria 0 /HPF (0-FEW) Urine Hyaline Casts Many /HPF Urine Mucus Marked /LPF Urine Opiates Screen Neg (NEG) Urine Methadone Screen Neg (NEG) Urine Barbiturates Neg (NEG) Urine Phencyclidine Screen Pos (NEG) Urine Amphetamine/Methamphetamine Neg (NEG) Urine Benzodiazepines Screen Neg (NEG) Urine Cocaine Screen Neg (NEG) Urine Cannabinoids Screen Neg (NEG) Urine Ethyl Alcohol Neg (NEG) Troponin I Quantitative < 0.017 ng/mL (0.000-0.055) 0.020 ng/mL (0.000-0.055) OD-Lfc-C-Type Natriuretic Peptide 180 pg/mL (0-124) Vitamin B12 Level 495 pg/mL (247-911) Thyroid Stimulating Hormone (TSH) 0.269 uIU/mL (0.358-3.74) Free Thyroxine 1.30 ng/dL (0.76-1.46) Laboratory Tests Test 08/02/18 10:07 White Blood Count 7.4 x10^3/uL (4.0-11.0) Red Blood Count 4.29 x10^6/uL (4.30-5.70) Hemoglobin 13.4 g/dL (13.0-17.5) Hematocrit 41.1 % (39.0-53.0) Mean Corpuscular Volume 96 fL (79-100) Mean Corpuscular Hemoglobin 31 pg (25-35) Mean Corpuscular Hemoglobin Concent 33 g/dL (31-37) Red Cell Distribution Width 13.8 % (11.5-14.5) Platelet Count 228 x10^3/uL (140-400) Neutrophils (%) (Auto) 81 % (31-73) Lymphocytes (%) (Auto) 12 % (24-48) Monocytes (%) (Auto) 6 % (0-9) Eosinophils (%) (Auto) 1 % (0-3) Basophils (%) (Auto) 0 % (0-3) Neutrophils # (Auto) 5.9 x10^3uL (1.8-7.7) Lymphocytes # (Auto) 0.9 x10^3/uL (1.0-4.8) Monocytes # (Auto) 0.5 x10^3/uL (0.0-1.1) Eosinophils # (Auto) 0.1 x10^3/uL (0.0-0.7) Basophils # (Auto) 0.0 x10^3/uL (0.0-0.2) Sodium Level 138 mmol/L (136-145) Potassium Level 4.1 mmol/L (3.5-5.1) Chloride Level 101 mmol/L (98-107) Carbon Dioxide Level 29 mmol/L (21-32) Anion Gap 8 (6-14) Blood Urea Nitrogen 13 mg/dL (8-26) Creatinine 0.6 mg/dL (0.7-1.3) Estimated GFR (Cockcroft-Gault) 166.3 BUN/Creatinine Ratio 22 (6-20) Glucose Level 103 mg/dL (70-99) Calcium Level 8.8 mg/dL (8.5-10.1) Total Bilirubin 0.5 mg/dL (0.2-1.0) Aspartate Amino Transf (AST/SGOT) 20 U/L (15-37) Alanine Aminotransferase (ALT/SGPT) 39 U/L (16-63) Alkaline Phosphatase 129 U/L (46-116) Troponin I Quantitative 0.020 ng/mL (0.000-0.055) Total Protein 7.5 g/dL (6.4-8.2) Albumin 3.2 g/dL (3.4-5.0) Albumin/Globulin Ratio 0.7 (1.0-1.7) Vitamin B12 Level 495 pg/mL (247-911) Thyroid Stimulating Hormone (TSH) 0.269 uIU/mL (0.358-3.74) Free Thyroxine 1.30 ng/dL (0.76-1.46) Brief Hospital Course Patient is a 58-year-old gentleman with significant past medical history for asthma who was in his usual state of health until the day prior to his admission when he indulges in some PCP with his friends. The patient was brought by his friends to the emergency department for decrease in sensorium. The patient does not recall the events that led to his admission. He is very short of breath at the time my evaluation fairly able to finish a sentence due to the respiratory distress. The patient has bronchospasm audible and increased work of breathing. Plan of care has been Explained in detail very little information can be gathered from the patient due to his acute respiratory distress. He keeps wanting to be dismissed from the hospital, given his respiratory distress I have encourage him to stay to get treated. Patient most likely inhale his PCP and gave him this bronchospasm due to his underlying reactive airway disease. No headache no blurred vision no chest pain or palpitations have been voiced by the patient no nausea vomiting no diarrhea no abdominal discomfort, no other complaints voiced during my visit is being admitted for further evaluation treatment Patietn admitted for bronchospasm as a consequence ofo his substance use. He is adamant about collecting his debit card from the rehab he just left against medical advice. Patient quesada snot seem to have family but he sasy she will reach out to a friend who will help him out. Patient will be evaluated prior to dismissal in order to establish he will not have a bad outcome, I have strongly recommend against continue use of illegal substances especially inhale once in light of his reactive airway disease. Patient does not have a list of medications. I have also strongly recommended following up with his primary care physician within one week. He is at increased risk for readmission. His habits and poor functional status. He is medically optimized and in hemodynamically stable condition for dismissal Discharge Information Condition at Discharge: Improved Follow Up: Weeks Disposition/Orders: D/C to Home Miscellaneous Medications Info (No Known Medications Prior To Admisstion) Each, 1 EACH , (Reported) Entered as Reported by: ROBERT AUGUSTE on 08/01/182249 Last Action: New Order on 08/01/182249 by AZALIA ARMENTA MD Aug 03, 2018 09:33
--- NOTE | 2018-08-03 11:09 | NUR ---
Discharge Note: pt discharged home with self care pt left hospital via private vehicle with son. pt stable upon discharge. DIANE CABRERA Discharge instructions reviewed with Patient and a copy given. All questions have been answered and understanding verbalized. The following instructions and handouts were given: drug and alcohol rehabilitation information and how to find help, pt was adament about not wanting to get help stated that "he was 58 years old and retired and he could do what he wanted. this nurse educated patient and son about the importance of getting help for patients addiction and follow-up with his primary care provider in 1-2 weeks.
== END 2018-08-03 11:17 | disposition home or self-care (01) | DRG 917 ==
LOC: ER 22:27 → 6 SOUTH 08-02 03:59 → 2 NORTH 08-02 06:20
PROVIDERS: ADMIT Internal Medicine; ATTEND Internal Medicine
DX: T40.991A Poisoning by other psychodysleptics [hallucinogens], accidental (unintentional), initial encounter (principal); J96.01 Acute respiratory failure with hypoxia; J68.0 Bronchitis and pneumonitis due to chemicals, gases, fumes and vapors; G89.29 Other chronic pain; F12.90 Cannabis use, unspecified, uncomplicated; F14.90 Cocaine use, unspecified, uncomplicated; W18.39XA Other fall on same level, initial encounter; Y93.89 Activity, other specified; Y92.89 Other specified places as the place of occurrence of the external cause; Y99.8 Other external cause status
CPT/HCPCS: 36415; 70450; 71045; 72125; 73030; 73080; 80053; 80307; 81001; 82607; 83605; 83735; 83880; 84439; 84443; 84484; 85025; 85610; 85730; 87040; 87086; 93005; 94640; 94760; 96361; 96365; 96366; 96375; 96376; G0480; J0360; J2060; J2930; J3475; J3490; J7030; J7613; J7620; 99285-25

== ENCOUNTER 2019-12-15 13:18 | Inpatient (IN) | payer OTHER ==
[~2019-12-15] VITALS: Ht 180.3 cm; Wt 71.2 kg
[2019-12-15 14:23] LABS: BASO % 1 % (0-3); EOS # 0.3 x10^3/uL (0.0-0.7); EOS % 5 % (0-3); HEMATOCRIT 43.2 % (39.0-53.0); HEMOGLOBIN 14.6 g/dL (13.0-17.5); LYMPH # 0.9 x10^3/uL (1.0-4.8); LYMPH % 15 % (24-48); MEAN CORPUSCULAR HEMOGLOBIN 32 pg (25-35); MEAN CORPUSCULAR HGB CONC 34 g/dL (31-37); MEAN CORPUSCULAR VOLUME 94 fL (79-100); MONO # 0.7 x10^3/uL (0.0-1.1); MONO % 12 % (0-9); NEUT # 3.9 x10^3/uL (1.8-7.7); NEUT % 67 % (31-73); PLATELET COUNT 251 x10^3/uL (140-400); RED BLOOD COUNT 4.61 x10^6/uL (4.30-5.70); RED CELL DISTRIBUTION WIDTH 13.7 % (11.5-14.5); WHITE BLOOD COUNT 5.7 x10^3/uL (4.0-11.0)
[2019-12-15] MEDS ORDERED: HYDROcodone/APAP 5/325MG 1 TAB TABLET PO ONE (14:30)
[2019-12-15 14:43] LABS: CALCIUM 8.2 mg/dL (8.5-10.1); CREATININE 0.9 mg/dL (0.7-1.3); GFR 103.8; POTASSIUM 3.3 mmol/L (3.5-5.1)
--- NOTE | 2019-12-15 14:45 | RAD ---
AP chest. HISTORY: Cough AP view was taken of the chest. The arm partially obscures the left lung base. Lungs are free of infiltrates. Heart is normal in size. There is no effusion. IMPRESSION: 1. Some limitation in evaluation of the left lung base. 2. No definite infiltrate. Electronically signed by: Sidney Blackburn MD (12/15/2019 2:42 PM) [id number]
[2019-12-15 14:49] LABS: ALBUMIN/GLOBULIN RATIO 0.8 (1.0-1.7); C-REACTIVE PROTEIN 33.6 mg/L (0-3.3); TOTAL BILIRUBIN 0.4 mg/dL (0.2-1.0); TOTAL PROTEIN 6.8 g/dL (6.4-8.2)
--- NOTE | 2019-12-15 15:55 | EKG ---
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
--- NOTE | 2019-12-15 16:05 | PHYS DOC ---
Past Medical History Past Medical History: COPD, Hypertension, SC, Other Additional Past Medical Histor: CHRONIC NECK PAIN Past Surgical History: No Surgical History Smoking Status: Current Every Day Smoker Alcohol Use: None Drug Use: Phencyclidine General Adult EDM: Chief Complaint: SHORTNESS OF BREATH HPI: HPI: Patient is a 59 year old [f__sex] who presents with [] Review of Systems: Review of Systems: General: Denies fever, chills, sweats, fatigue Eyes: Denies drainage, blurred vision, eye redness HENT: Denies rhinorrhea, sore throat, earache Respiratory: Denies cough, wheezing. Reports shortness of breath Cardiac: Denies edema, palpitations. Reports chest pain GI: Denies abdominal pain, Nausea, vomiting MSK: Denies back pain, neck pain Skin: Denies rash, jaundice Neuro: Denies headache, dizziness Psychiatric: Denies SI/HI Heart Score: Risk Factors: Risk Factors: DM, Current or recent (<one month) smoker, HTN, HLP, family history of CAD, obesity. Risk Scores: Score 0 - 3: 2.5% MACE over next 6 weeks - Discharge Home Score 4 - 6: 20.3% MACE over next 6 weeks - Admit for Clinical Observation Score 7 - 10: 72.7% MACE over next 6 weeks - Early Invasive Strategies Current Medications: Current Medications Medications (Trade) Dose Ordered Sig/Mohan Start Time Stop Time Status Last Admin Dose Admin Acetaminophen/ Hydrocodone Bitart (Lortab 5/325) 1 tab 1X ONCE 12/15/19 14:30 12/15/19 14:31 DC 12/15/19 14:39 1 TAB Allergies: Allergies: Allergies Coded Allergies Type Severity Reaction Last Updated Verified No Known Drug Allergies 08/01/18 No Physical Exam: PE: General: Awake, alert, NAD. Well Nourished, well hydrated. Cooperative HEENT: Atraumatic, EOMI, PERRL, airway patent, moist oral mucosa Neck: Supple, trachea midline Respiratory: CTA bilaterally, normal effort, no wheezing/crackles CV: RRR, no murmur, cap refill <2 GI: Soft, nondistended, nontender, no masses MSK: Right arm c contractures Skin: Warm, dry, intact Neuro: A&O x3, speech NL Psych: Normal affect, normal mood, not suicidal or homicidal Current Patient Data: Labs: Laboratory Tests Test 12/15/19 14:10 White Blood Count 5.7 x10^3/uL (4.0-11.0) Red Blood Count 4.61 x10^6/uL (4.30-5.70) Hemoglobin 14.6 g/dL (13.0-17.5) Hematocrit 43.2 % (39.0-53.0) Mean Corpuscular Volume 94 fL (79-100) Mean Corpuscular Hemoglobin 32 pg (25-35) Mean Corpuscular Hemoglobin Concent 34 g/dL (31-37) Red Cell Distribution Width 13.7 % (11.5-14.5) Platelet Count 251 x10^3/uL (140-400) Neutrophils (%) (Auto) 67 % (31-73) Lymphocytes (%) (Auto) 15 % (24-48) L Monocytes (%) (Auto) 12 % (0-9) H Eosinophils (%) (Auto) 5 % (0-3) H Basophils (%) (Auto) 1 % (0-3) Neutrophils # (Auto) 3.9 x10^3/uL (1.8-7.7) Lymphocytes # (Auto) 0.9 x10^3/uL (1.0-4.8) L Monocytes # (Auto) 0.7 x10^3/uL (0.0-1.1) Eosinophils # (Auto) 0.3 x10^3/uL (0.0-0.7) Basophils # (Auto) 0.0 x10^3/uL (0.0-0.2) D-Dimer (Janette) 0.34 ug/mlFEU (0.00-0.50) Sodium Level 144 mmol/L (136-145) Potassium Level 3.3 mmol/L (3.5-5.1) L Chloride Level 106 mmol/L (98-107) Carbon Dioxide Level 32 mmol/L (21-32) Anion Gap 6 (6-14) Blood Urea Nitrogen 16 mg/dL (8-26) Creatinine 0.9 mg/dL (0.7-1.3) Estimated GFR (Cockcroft-Gault) 103.8 BUN/Creatinine Ratio 18 (6-20) Glucose Level 119 mg/dL (70-99) H Calcium Level 8.2 mg/dL (8.5-10.1) L Total Bilirubin 0.4 mg/dL (0.2-1.0) Aspartate Amino Transferase (AST) 14 U/L (15-37) L Alanine Aminotransferase (ALT) 21 U/L (16-63) Alkaline Phosphatase 112 U/L (46-116) Lactate Dehydrogenase 176 U/L (85-227) Creatine Kinase 64 U/L (39-308) Troponin I Quantitative < 0.017 ng/mL (0.000-0.055) C-Reactive Protein, Quantitative 33.6 mg/L (0-3.3) H YQ-Oop-W-Type Natriuretic Peptide 367 pg/mL (0-124) H Total Protein 6.8 g/dL (6.4-8.2) Albumin 3.0 g/dL (3.4-5.0) L Albumin/Globulin Ratio 0.8 (1.0-1.7) L Laboratory Tests 12/15/19 14:10 Laboratory Tests 12/15/19 14:10 Vital Signs: Vital Signs Date Time Temp Pulse Resp B/P (MAP) Pulse Ox O2 Delivery O2 Flow Rate FiO2 12/15/19 14:39 22 98 Room Air 12/15/19 13:40 98.2 95 141/62 (88) 98.2 EKG: EKG: [] Radiology/Procedures: Radiology/Procedures: [] Course & Med Decision Making: Course & Med Decision Making Pertinent Labs and Imaging studies reviewed. (See chart for details) Patient is a 59-year-old male who presents to the emergency room complaining of chest pressure and shortness of breath. He is had some chronic pain but feels that this is different than usual. He has been living in abandoned houses and is unable to take care of himself. He signed himself out of a living facility because he did not feel it was safe and has been working with his insurance company to try to get placement. Patient be admitted for chest pain. Work-up is negative. COVID test was done. I have discussed his case with case management will talk to his insurance about possible placement. Dragon Disclaimer: Dragon Disclaimer: This electronic medical record was generated, in whole or in part, using a voice recognition dictation system. Departure Departure Impression: Primary Impression: Chest pain Additional Impression: Difficulty with activities of daily living Disposition: ADMITTED INPATIENT Condition: STABLE Referrals: UNKNOWN PCP NAME (PCP) Justicifation of Admission Dx: Justifications for Admission: Justification of Admission Dx: Yes ASHLEY BOATENG MD Dec 15, 2019 16:05
--- NOTE | 2019-12-15 16:27 | EKG ---
[facility] [address] [place] [address] Test Date: 2019-12-15 Test Time: 14:17:00 Pat Name: DIANE CABRERA Department: Room: Gender: M [employer]er: : 1960 Requested By: ASHLEY BOATENG Order Number: [id number] Reading MD: Cooper José MD Measurements Intervals [place] Rate: 94 P: 90 [place]: 174 QRS: -74 QRSD: 94 T: 100 QT: 356 QTc: 451 Interpretive Statements SINUS RHYTHM LVH CHRONIC NON-SPECIFIC CHANGES. Electronically Signed On 12-16-2019 14:43:12 CDT by Cooper José MD
--- NOTE | 2019-12-15 18:51 | PDOC1 ---
History and Physical Date of Admission Date of Admission DATE: 12/15/19 TIME: 18:51 Identification/Chief Complaint Chief Complaint arm and chest pain History of Present Illness History of Present Illness Mr. Guerrero, is a 59-year-old male admit for arm pain, and chest pain. he also complains of pressure and shortness of breath. He is had some chronic pain but feels that this is different than usual. He has been living in abandoned houses and is unable to take care of himself. He signed himself out of a living facility because he did not feel it was safe and has been working with his insurance company to try to get placement. . COVID test done and he will be admitted as PUI. muscle pain in arms possible Past Medical History Cardiovascular: No pertinent hx Pulmonary: No pertinent hx Social History Smoke: <1 pack per day ALCOHOL: social Drugs: None Current Problem List Problem List Problems Medical Problems: (1) Chest pain Status: Acute (2) Difficulty with activities of daily living Status: Acute Current Medications Current Medications Current Medications Acetaminophen/ Hydrocodone Bitart (Lortab 5/325) 1 tab 1X ONCE PO Last administered on 12/15/19at 14:39; Start 12/15/19 at 14:30; Stop 12/15/19 at 14:31; Status DC Active Scripts Active Reported No Known Medications Prior To Admisstion (Info) Each 1 Each Allergies Allergies: Coded Allergies: No Known Drug Allergies (Unverified , 08/01/18) ROS General: YES: Chills, Fatigue; No: Night Sweats, Malaise, Appetite, Other PSYCHOLOGICAL ROS: YES: Sleep disturbances; No: Anxiety, Behavioral Disorder, Concentration difficultie, Decreased libido, Depression, Disorientation, Hallucinations, Hostility, Irritablity, Memory difficulties, Mood Swings, Obsessive thoughts, Physical abuse, Suicidal ideation, Other Eyes: No Blurry vision, No Decreased vision, No Double vision, No Dry eyes, No Excessive tearing, No Eye Pain, No Itchy Eyes, No Loss of vision, No Photophobia, No Scotomata, No Uses contacts, No Uses glasses, No Other HEENT: No: Heacaches, Visual Changes, Hearing change, Nasal congestion, Nasal discharge, Oral lesions, Sinus pain, Sore Throat, Epistaxis, Sneezing, Snoring, Tinnitus, Vertigo, Vocal changes, Other Respiratory: YES: Cough, SOB with excertion; No: Hemoptysis, Orthopnea, Pleuritic Pain, Shortness of breath, Sputum Changes, Stridor, Tachypnea, Wheezing, Other Cardiovascular: yes Chest Pain, yes Edema; No Palpitations, No Orthopnea, No Paroxysmal Noc. Dyspnea, No Lt Headedness, No Other Gastrointestinal: Yes Nausea; No Vomiting, No Abdominal Pain, No Diarrhea, No Constipation, No Melena, No Hematochezia, No Other Genitourinary: No Dysuria, No Frequency, No Incontinence, No Hematuria, No Retention, No Discharge, No Urgency, No Pain, No Flank Pain, No Other, No , No , No , No , No , No , No Musculoskeletal: Yes Joint Pain, Yes Joint Stiffness, Yes Muscle Pain, Yes Pain In: Neurological: No Behavorial Changes, No Bowel/Bladder ControlChng, No Confusion, No Dizziness, No Gait Disturbance, No Headaches, No Impaired Coord/balance, No Memory Loss, No Numbness/Tingling, No Seizures, No Speech Problems, No Tremors, No Visual Changes, No Weakness, No Other Skin: Yes Dry Skin; No Eczema, No Hair Changes, No Lumps, No Mole Changes, No Mottling, No Nail Changes, No Pruritus, No Rash, No Skin Lesion Changes, No Other, No Acne Physical Exam General: Alert, Cooperative, mild distress HEENT: Atraumatic, PERRLA Lungs: Other (rales, mod vol) Abdomen: Soft Extremities: No cyanosis Skin: No rashes, Other (dry, flaking skin) Neuro: Sensation intact Psych/Mental Status: Mood NL Vitals Vitals Vital Signs Date Time Temp Pulse Resp B/P (MAP) Pulse Ox O2 Delivery O2 Flow Rate FiO2 12/15/19 15:28 80 20 144/66 (92) 98 Room Air 12/15/19 13:40 98.2 98.2 Labs Labs Laboratory Tests Test 12/15/19 14:10 White Blood Count 5.7 x10^3/uL (4.0-11.0) Red Blood Count 4.61 x10^6/uL (4.30-5.70) Hemoglobin 14.6 g/dL (13.0-17.5) Hematocrit 43.2 % (39.0-53.0) Mean Corpuscular Volume 94 fL (79-100) Mean Corpuscular Hemoglobin 32 pg (25-35) Mean Corpuscular Hemoglobin Concent 34 g/dL (31-37) Red Cell Distribution Width 13.7 % (11.5-14.5) Platelet Count 251 x10^3/uL (140-400) Neutrophils (%) (Auto) 67 % (31-73) Lymphocytes (%) (Auto) 15 % (24-48) Monocytes (%) (Auto) 12 % (0-9) Eosinophils (%) (Auto) 5 % (0-3) Basophils (%) (Auto) 1 % (0-3) Neutrophils # (Auto) 3.9 x10^3/uL (1.8-7.7) Lymphocytes # (Auto) 0.9 x10^3/uL (1.0-4.8) Monocytes # (Auto) 0.7 x10^3/uL (0.0-1.1) Eosinophils # (Auto) 0.3 x10^3/uL (0.0-0.7) Basophils # (Auto) 0.0 x10^3/uL (0.0-0.2) D-Dimer (Janette) 0.34 ug/mlFEU (0.00-0.50) Sodium Level 144 mmol/L (136-145) Potassium Level 3.3 mmol/L (3.5-5.1) Chloride Level 106 mmol/L (98-107) Carbon Dioxide Level 32 mmol/L (21-32) Anion Gap 6 (6-14) Blood Urea Nitrogen 16 mg/dL (8-26) Creatinine 0.9 mg/dL (0.7-1.3) Estimated GFR (Cockcroft-Gault) 103.8 BUN/Creatinine Ratio 18 (6-20) Glucose Level 119 mg/dL (70-99) Calcium Level 8.2 mg/dL (8.5-10.1) Total Bilirubin 0.4 mg/dL (0.2-1.0) Aspartate Amino Transf (AST/SGOT) 14 U/L (15-37) Alanine Aminotransferase (ALT/SGPT) 21 U/L (16-63) Alkaline Phosphatase 112 U/L (46-116) Lactate Dehydrogenase 176 U/L (85-227) Creatine Kinase 64 U/L (39-308) Troponin I Quantitative < 0.017 ng/mL (0.000-0.055) C-Reactive Protein, Quantitative 33.6 mg/L (0-3.3) SU-Qwg-S-Type Natriuretic Peptide 367 pg/mL (0-124) Total Protein 6.8 g/dL (6.4-8.2) Albumin 3.0 g/dL (3.4-5.0) Albumin/Globulin Ratio 0.8 (1.0-1.7) Laboratory Tests Test 12/15/19 14:10 White Blood Count 5.7 x10^3/uL (4.0-11.0) Red Blood Count 4.61 x10^6/uL (4.30-5.70) Hemoglobin 14.6 g/dL (13.0-17.5) Hematocrit 43.2 % (39.0-53.0) Mean Corpuscular Volume 94 fL (79-100) Mean Corpuscular Hemoglobin 32 pg (25-35) Mean Corpuscular Hemoglobin Concent 34 g/dL (31-37) Red Cell Distribution Width 13.7 % (11.5-14.5) Platelet Count 251 x10^3/uL (140-400) Neutrophils (%) (Auto) 67 % (31-73) Lymphocytes (%) (Auto) 15 % (24-48) Monocytes (%) (Auto) 12 % (0-9) Eosinophils (%) (Auto) 5 % (0-3) Basophils (%) (Auto) 1 % (0-3) Neutrophils # (Auto) 3.9 x10^3/uL (1.8-7.7) Lymphocytes # (Auto) 0.9 x10^3/uL (1.0-4.8) Monocytes # (Auto) 0.7 x10^3/uL (0.0-1.1) Eosinophils # (Auto) 0.3 x10^3/uL (0.0-0.7) Basophils # (Auto) 0.0 x10^3/uL (0.0-0.2) D-Dimer (Janette) 0.34 ug/mlFEU (0.00-0.50) Sodium Level 144 mmol/L (136-145) Potassium Level 3.3 mmol/L (3.5-5.1) Chloride Level 106 mmol/L (98-107) Carbon Dioxide Level 32 mmol/L (21-32) Anion Gap 6 (6-14) Blood Urea Nitrogen 16 mg/dL (8-26) Creatinine 0.9 mg/dL (0.7-1.3) Estimated GFR (Cockcroft-Gault) 103.8 BUN/Creatinine Ratio 18 (6-20) Glucose Level 119 mg/dL (70-99) Calcium Level 8.2 mg/dL (8.5-10.1) Total Bilirubin 0.4 mg/dL (0.2-1.0) Aspartate Amino Transf (AST/SGOT) 14 U/L (15-37) Alanine Aminotransferase (ALT/SGPT) 21 U/L (16-63) Alkaline Phosphatase 112 U/L (46-116) Lactate Dehydrogenase 176 U/L (85-227) Creatine Kinase 64 U/L (39-308) Troponin I Quantitative < 0.017 ng/mL (0.000-0.055) C-Reactive Protein, Quantitative 33.6 mg/L (0-3.3) FI-Vgs-E-Type Natriuretic Peptide 367 pg/mL (0-124) Total Protein 6.8 g/dL (6.4-8.2) Albumin 3.0 g/dL (3.4-5.0) Albumin/Globulin Ratio 0.8 (1.0-1.7) VTE Prophylaxis Ordered VTE Prophylaxis Devices: No VTE Pharmacological Prophylaxi: Yes Assessment/Plan Assessment/Plan cough, weakness, arm pain, chest pain admit to r/o COVID 19, seen in full PPE will also check for ACS, repeat trop in AM, give proph lvoenox, he fels too weak and short of breath to go home, complains of severe pain Justicifation of Admission Dx: Justifications for Admission: Justification of Admission Dx: Yes JUSTINO RAINES MD Dec 15, 2019 18:51
[2019-12-15] MEDS ORDERED: MORPHINE SULFATE 4 MG/ML VIAL. IV PRN (20:00)
[2019-12-15] MEDS ORDERED: ZOLPIDEM 5 MG TABLET. PO PRN (20:00)
[2019-12-15] MEDS ORDERED: CYCLOBENZAPRINE 10 MG TABLET. PO PRN (20:00)
[2019-12-15] MEDS ORDERED: NICOTINE 21MG PATCH. TD PRN (20:00)
[2019-12-15 20:51] VITALS: BP 153/66
[2019-12-15] MEDS: oxyCODONE/APAP 5/325 1 TAB TABLET PO PRN (21:14)
[2019-12-15] MEDS ORDERED: POTASSIUM CHLORIDE 20 MEQ TABLET.ER. PO ONE (21:30)
[2019-12-15 23:48] VITALS: BP 155/70
[2019-12-16] MEDS: oxyCODONE/APAP 5/325 1 TAB TABLET PO PRN ×4 (01:36→21:57)
[2019-12-16 03:50] VITALS: BP 146/61
[2019-12-16 04:22] LABS: BASO % 0 % (0-3); EOS # 0.3 x10^3/uL (0.0-0.7); EOS % 5 % (0-3); HEMATOCRIT 42.2 % (39.0-53.0); HEMOGLOBIN 14.1 g/dL (13.0-17.5); LYMPH # 1.2 x10^3/uL (1.0-4.8); LYMPH % 19 % (24-48); MEAN CORPUSCULAR HEMOGLOBIN 31 pg (25-35); MEAN CORPUSCULAR HGB CONC 33 g/dL (31-37); MEAN CORPUSCULAR VOLUME 94 fL (79-100); MONO # 0.7 x10^3/uL (0.0-1.1); MONO % 11 % (0-9); NEUT # 3.9 x10^3/uL (1.8-7.7); NEUT % 64 % (31-73); PLATELET COUNT 238 x10^3/uL (140-400); RED BLOOD COUNT 4.49 x10^6/uL (4.30-5.70); RED CELL DISTRIBUTION WIDTH 13.9 % (11.5-14.5); WHITE BLOOD COUNT 6.1 x10^3/uL (4.0-11.0)
[2019-12-16 04:44] LABS: ALBUMIN 2.9 g/dL (3.4-5.0); ALBUMIN/GLOBULIN RATIO 0.9 (1.0-1.7); CREATININE 0.6 mg/dL (0.7-1.3); GFR 165.7; TOTAL BILIRUBIN 0.2 mg/dL (0.2-1.0); TOTAL PROTEIN 6.2 g/dL (6.4-8.2)
[2019-12-16 07:40] VITALS: BP 156/67
[2019-12-16] MEDS: ENOXAPARIN 40 MG/0.4 ML SYRINGE. SQ SCH (08:42)
--- NOTE | 2019-12-16 10:49 | PDOC ---
PROGRESS NOTES Date of Service: DATE: 12/16/19 TIME: 10:49 Chief Complaint Chief Complaint VTE Prophylaxis Ordered VTE Prophylaxis Devices: No VTE Pharmacological Prophylaxi: Yes Assessment/Plan cough, weakness, arm pain, chest pain admit to r/o COVID 19, seen in full PPE will also check for ACS, give proph lvoenox, he feels too weak and short of breath to go home, complains of severe pain D/W RN Justicifation of Admission Dx: Justicifation of Admission Dx: Justifications for Admission: Justification of Admission Dx: Yes History of Present Illness History of Present Illness History of Present Illness History of Present Illness Mr. Guerrero, is a 59-year-old male admit for arm pain, and chest pain. he also complains of pressure and shortness of breath. He is had some chronic pain but feels that this is different than usual. He has been living in abandoned houses and is unable to take care of himself. He signed himself out of a living facility because he did not feel it was safe and has been working with his insurance company to try to get placement. . COVID test done and he will be admitted as PUI. muscle pain in arms possible Past Medical History Cardiovascular: No pertinent hx Pulmonary: No pertinent hx Social History Smoke: <1 pack per day ALCOHOL: social Drugs: None Vitals Vitals Vital Signs Date Time Temp Pulse Resp B/P (MAP) Pulse Ox O2 Delivery O2 Flow Rate FiO2 12/16/19 07:40 97.0 83 20 156/67 (96) 98 Room Air 97.0 Physical Exam General: Alert, Oriented X3, Cooperative, No acute distress Heart: Regular rate Lungs: Clear Abdomen: Soft Extremities: No cyanosis Skin: No rashes, Other (dry, flaking skin) Labs LABS SEX: M EXAM STATUS: PRE ER ORD. PHYSICIAN: ASHLEY BOATENG MD REASON: cough, covid? (pt unable to lower arm for cxr due to muscle spasm) PROCEDURE: CHEST AP ONLY AP chest. HISTORY: Cough AP view was taken of the chest. The arm partially obscures the left lung base. Lungs are free of infiltrates. Heart is normal in size. There is no effusion. IMPRESSION: 1. Some limitation in evaluation of the left lung base. 2. No definite infiltrate. Electronically signed by: Sidney Blackburn MD (12/15/2019 2:42 PM) [id number] AP chest. HISTORY: Cough AP view was taken of the chest. The arm partially obscures the left lung base. Lungs are free of infiltrates. Heart is normal in size. There is no effusion. IMPRESSION: 1. Some limitation in evaluation of the left lung base. 2. No definite infiltrate. Electronically signed by: Sidney Blackburn MD (12/15/2019 2:42 PM) [id number] DICTATED and SIGNED BY: SIDNEY BLACKBURN MD DATE: 12/15/19 1442 Laboratory Tests Test 12/15/19 14:10 12/16/19 03:30 White Blood Count 5.7 x10^3/uL (4.0-11.0) 6.1 x10^3/uL (4.0-11.0) Red Blood Count 4.61 x10^6/uL (4.30-5.70) 4.49 x10^6/uL (4.30-5.70) Hemoglobin 14.6 g/dL (13.0-17.5) 14.1 g/dL (13.0-17.5) Hematocrit 43.2 % (39.0-53.0) 42.2 % (39.0-53.0) Mean Corpuscular Volume 94 fL (79-100) 94 fL (79-100) Mean Corpuscular Hemoglobin 32 pg (25-35) 31 pg (25-35) Mean Corpuscular Hemoglobin Concent 34 g/dL (31-37) 33 g/dL (31-37) Red Cell Distribution Width 13.7 % (11.5-14.5) 13.9 % (11.5-14.5) Platelet Count 251 x10^3/uL (140-400) 238 x10^3/uL (140-400) Neutrophils (%) (Auto) 67 % (31-73) 64 % (31-73) Lymphocytes (%) (Auto) 15 % (24-48) 19 % (24-48) Monocytes (%) (Auto) 12 % (0-9) 11 % (0-9) Eosinophils (%) (Auto) 5 % (0-3) 5 % (0-3) Basophils (%) (Auto) 1 % (0-3) 0 % (0-3) Neutrophils # (Auto) 3.9 x10^3/uL (1.8-7.7) 3.9 x10^3/uL (1.8-7.7) Lymphocytes # (Auto) 0.9 x10^3/uL (1.0-4.8) 1.2 x10^3/uL (1.0-4.8) Monocytes # (Auto) 0.7 x10^3/uL (0.0-1.1) 0.7 x10^3/uL (0.0-1.1) Eosinophils # (Auto) 0.3 x10^3/uL (0.0-0.7) 0.3 x10^3/uL (0.0-0.7) Basophils # (Auto) 0.0 x10^3/uL (0.0-0.2) 0.0 x10^3/uL (0.0-0.2) D-Dimer (Janette) 0.34 ug/mlFEU (0.00-0.50) Sodium Level 144 mmol/L (136-145) 142 mmol/L (136-145) Potassium Level 3.3 mmol/L (3.5-5.1) 4.0 mmol/L (3.5-5.1) Chloride Level 106 mmol/L (98-107) 106 mmol/L (98-107) Carbon Dioxide Level 32 mmol/L (21-32) 31 mmol/L (21-32) Anion Gap 6 (6-14) 5 (6-14) Blood Urea Nitrogen 16 mg/dL (8-26) 16 mg/dL (8-26) Creatinine 0.9 mg/dL (0.7-1.3) 0.6 mg/dL (0.7-1.3) Estimated GFR (Cockcroft-Gault) 103.8 165.7 BUN/Creatinine Ratio 18 (6-20) 27 (6-20) Glucose Level 119 mg/dL (70-99) 120 mg/dL (70-99) Calcium Level 8.2 mg/dL (8.5-10.1) 8.0 mg/dL (8.5-10.1) Total Bilirubin 0.4 mg/dL (0.2-1.0) 0.2 mg/dL (0.2-1.0) Aspartate Amino Transf (AST/SGOT) 14 U/L (15-37) 12 U/L (15-37) Alanine Aminotransferase (ALT/SGPT) 21 U/L (16-63) 20 U/L (16-63) Alkaline Phosphatase 112 U/L (46-116) 109 U/L (46-116) Lactate Dehydrogenase 176 U/L (85-227) Creatine Kinase 64 U/L (39-308) Troponin I Quantitative < 0.017 ng/mL (0.000-0.055) < 0.017 ng/mL (0.000-0.055) C-Reactive Protein, Quantitative 33.6 mg/L (0-3.3) [id number]-Type Natriuretic Peptide 367 pg/mL (0-124) Total Protein 6.8 g/dL (6.4-8.2) 6.2 g/dL (6.4-8.2) Albumin 3.0 g/dL (3.4-5.0) 2.9 g/dL (3.4-5.0) Albumin/Globulin Ratio 0.8 (1.0-1.7) 0.9 (1.0-1.7) Triglycerides Level 80 mg/dL (0-150) Cholesterol Level 155 mg/dL (0-200) LDL Cholesterol, Calculated 87 mg/dL (0-100) VLDL Cholesterol, Calculated 16 mg/dL (0-40) Non-HDL Cholesterol Calculated 103 mg/dL (0-129) HDL Cholesterol 52 mg/dL (40-60) Cholesterol/HDL Ratio 3.0 Assessment and Plan Assessmemt and Plan Problems Medical Problems: (1) Chest pain Status: Acute (2) Difficulty with activities of daily living Status: Acute Comment Review of Relevant I have reviewed the following items rosy (where applicable) has been applied. Labs Laboratory Tests Test 12/15/19 14:10 12/16/19 03:30 White Blood Count 5.7 x10^3/uL (4.0-11.0) 6.1 x10^3/uL (4.0-11.0) Red Blood Count 4.61 x10^6/uL (4.30-5.70) 4.49 x10^6/uL (4.30-5.70) Hemoglobin 14.6 g/dL (13.0-17.5) 14.1 g/dL (13.0-17.5) Hematocrit 43.2 % (39.0-53.0) 42.2 % (39.0-53.0) Mean Corpuscular Volume 94 fL (79-100) 94 fL (79-100) Mean Corpuscular Hemoglobin 32 pg (25-35) 31 pg (25-35) Mean Corpuscular Hemoglobin Concent 34 g/dL (31-37) 33 g/dL (31-37) Red Cell Distribution Width 13.7 % (11.5-14.5) 13.9 % (11.5-14.5) Platelet Count 251 x10^3/uL (140-400) 238 x10^3/uL (140-400) Neutrophils (%) (Auto) 67 % (31-73) 64 % (31-73) Lymphocytes (%) (Auto) 15 % (24-48) 19 % (24-48) Monocytes (%) (Auto) 12 % (0-9) 11 % (0-9) Eosinophils (%) (Auto) 5 % (0-3) 5 % (0-3) Basophils (%) (Auto) 1 % (0-3) 0 % (0-3) Neutrophils # (Auto) 3.9 x10^3/uL (1.8-7.7) 3.9 x10^3/uL (1.8-7.7) Lymphocytes # (Auto) 0.9 x10^3/uL (1.0-4.8) 1.2 x10^3/uL (1.0-4.8) Monocytes # (Auto) 0.7 x10^3/uL (0.0-1.1) 0.7 x10^3/uL (0.0-1.1) Eosinophils # (Auto) 0.3 x10^3/uL (0.0-0.7) 0.3 x10^3/uL (0.0-0.7) Basophils # (Auto) 0.0 x10^3/uL (0.0-0.2) 0.0 x10^3/uL (0.0-0.2) D-Dimer (Janette) 0.34 ug/mlFEU (0.00-0.50) Sodium Level 144 mmol/L (136-145) 142 mmol/L (136-145) Potassium Level 3.3 mmol/L (3.5-5.1) 4.0 mmol/L (3.5-5.1) Chloride Level 106 mmol/L (98-107) 106 mmol/L (98-107) Carbon Dioxide Level 32 mmol/L (21-32) 31 mmol/L (21-32) Anion Gap 6 (6-14) 5 (6-14) Blood Urea Nitrogen 16 mg/dL (8-26) 16 mg/dL (8-26) Creatinine 0.9 mg/dL (0.7-1.3) 0.6 mg/dL (0.7-1.3) Estimated GFR (Cockcroft-Gault) 103.8 165.7 BUN/Creatinine Ratio 18 (6-20) 27 (6-20) Glucose Level 119 mg/dL (70-99) 120 mg/dL (70-99) Calcium Level 8.2 mg/dL (8.5-10.1) 8.0 mg/dL (8.5-10.1) Total Bilirubin 0.4 mg/dL (0.2-1.0) 0.2 mg/dL (0.2-1.0) Aspartate Amino Transf (AST/SGOT) 14 U/L (15-37) 12 U/L (15-37) Alanine Aminotransferase (ALT/SGPT) 21 U/L (16-63) 20 U/L (16-63) Alkaline Phosphatase 112 U/L (46-116) 109 U/L (46-116) Lactate Dehydrogenase 176 U/L (85-227) Creatine Kinase 64 U/L (39-308) Troponin I Quantitative < 0.017 ng/mL (0.000-0.055) < 0.017 ng/mL (0.000-0.055) C-Reactive Protein, Quantitative 33.6 mg/L (0-3.3) AY-Wva-M-Type Natriuretic Peptide 367 pg/mL (0-124) Total Protein 6.8 g/dL (6.4-8.2) 6.2 g/dL (6.4-8.2) Albumin 3.0 g/dL (3.4-5.0) 2.9 g/dL (3.4-5.0) Albumin/Globulin Ratio 0.8 (1.0-1.7) 0.9 (1.0-1.7) Triglycerides Level 80 mg/dL (0-150) Cholesterol Level 155 mg/dL (0-200) LDL Cholesterol, Calculated 87 mg/dL (0-100) VLDL Cholesterol, Calculated 16 mg/dL (0-40) Non-HDL Cholesterol Calculated 103 mg/dL (0-129) HDL Cholesterol 52 mg/dL (40-60) Cholesterol/HDL Ratio 3.0 Laboratory Tests Test 12/15/19 14:10 12/16/19 03:30 White Blood Count 5.7 x10^3/uL (4.0-11.0) 6.1 x10^3/uL (4.0-11.0) Red Blood Count 4.61 x10^6/uL (4.30-5.70) 4.49 x10^6/uL (4.30-5.70) Hemoglobin 14.6 g/dL (13.0-17.5) 14.1 g/dL (13.0-17.5) Hematocrit 43.2 % (39.0-53.0) 42.2 % (39.0-53.0) Mean Corpuscular Volume 94 fL (79-100) 94 fL (79-100) Mean Corpuscular Hemoglobin 32 pg (25-35) 31 pg (25-35) Mean Corpuscular Hemoglobin Concent 34 g/dL (31-37) 33 g/dL (31-37) Red Cell Distribution Width 13.7 % (11.5-14.5) 13.9 % (11.5-14.5) Platelet Count 251 x10^3/uL (140-400) 238 x10^3/uL (140-400) Neutrophils (%) (Auto) 67 % (31-73) 64 % (31-73) Lymphocytes (%) (Auto) 15 % (24-48) 19 % (24-48) Monocytes (%) (Auto) 12 % (0-9) 11 % (0-9) Eosinophils (%) (Auto) 5 % (0-3) 5 % (0-3) Basophils (%) (Auto) 1 % (0-3) 0 % (0-3) Neutrophils # (Auto) 3.9 x10^3/uL (1.8-7.7) 3.9 x10^3/uL (1.8-7.7) Lymphocytes # (Auto) 0.9 x10^3/uL (1.0-4.8) 1.2 x10^3/uL (1.0-4.8) Monocytes # (Auto) 0.7 x10^3/uL (0.0-1.1) 0.7 x10^3/uL (0.0-1.1) Eosinophils # (Auto) 0.3 x10^3/uL (0.0-0.7) 0.3 x10^3/uL (0.0-0.7) Basophils # (Auto) 0.0 x10^3/uL (0.0-0.2) 0.0 x10^3/uL (0.0-0.2) D-Dimer (Janette) 0.34 ug/mlFEU (0.00-0.50) Sodium Level 144 mmol/L (136-145) 142 mmol/L (136-145) Potassium Level 3.3 mmol/L (3.5-5.1) 4.0 mmol/L (3.5-5.1) Chloride Level 106 mmol/L (98-107) 106 mmol/L (98-107) Carbon Dioxide Level 32 mmol/L (21-32) 31 mmol/L (21-32) Anion Gap 6 (6-14) 5 (6-14) Blood Urea Nitrogen 16 mg/dL (8-26) 16 mg/dL (8-26) Creatinine 0.9 mg/dL (0.7-1.3) 0.6 mg/dL (0.7-1.3) Estimated GFR (Cockcroft-Gault) 103.8 165.7 BUN/Creatinine Ratio 18 (6-20) 27 (6-20) Glucose Level 119 mg/dL (70-99) 120 mg/dL (70-99) Calcium Level 8.2 mg/dL (8.5-10.1) 8.0 mg/dL (8.5-10.1) Total Bilirubin 0.4 mg/dL (0.2-1.0) 0.2 mg/dL (0.2-1.0) Aspartate Amino Transf (AST/SGOT) 14 U/L (15-37) 12 U/L (15-37) Alanine Aminotransferase (ALT/SGPT) 21 U/L (16-63) 20 U/L (16-63) Alkaline Phosphatase 112 U/L (46-116) 109 U/L (46-116) Lactate Dehydrogenase 176 U/L (85-227) Creatine Kinase 64 U/L (39-308) Troponin I Quantitative < 0.017 ng/mL (0.000-0.055) < 0.017 ng/mL (0.000-0.055) C-Reactive Protein, Quantitative 33.6 mg/L (0-3.3) YW-Dae-C-Type Natriuretic Peptide 367 pg/mL (0-124) Total Protein 6.8 g/dL (6.4-8.2) 6.2 g/dL (6.4-8.2) Albumin 3.0 g/dL (3.4-5.0) 2.9 g/dL (3.4-5.0) Albumin/Globulin Ratio 0.8 (1.0-1.7) 0.9 (1.0-1.7) Triglycerides Level 80 mg/dL (0-150) Cholesterol Level 155 mg/dL (0-200) LDL Cholesterol, Calculated 87 mg/dL (0-100) VLDL Cholesterol, Calculated 16 mg/dL (0-40) Non-HDL Cholesterol Calculated 103 mg/dL (0-129) HDL Cholesterol 52 mg/dL (40-60) Cholesterol/HDL Ratio 3.0 Medications Current Medications Acetaminophen/ Hydrocodone Bitart (Lortab 5/325) 1 tab 1X ONCE PO Last administered on 12/15/19at 14:39; Start 12/15/19 at 14:30; Stop 12/15/19 at 14:31; Status DC Cyclobenzaprine HCl (Flexeril) 10 mg PRN Q6HRS PRN PO MUSCLE SPASMS; Start 12/15/19 at 20:00 Nicotine (Nicoderm Cq 21mg) 1 patch PRN DAILY PRN TD SMOKING CESSATION; Start 12/15/19 at 20:00 Oxycodone/ Acetaminophen (Percocet 5/325) 1 tab PRN Q4HRS PRN PO PAIN Last administered on 12/16/19at 01:36; Start 12/15/19 at 20:00 Morphine Sulfate (Morphine Sulfate) 4 mg PRN Q2HR PRN IV PAIN; Start 12/15/19 at 20:00 Enoxaparin Sodium (Lovenox Per Pharmacy Prophylaxis Dosing) 1 each PRN DAILY PRN MC SEE COMMENTS; Start 12/15/19 at 20:00 Zolpidem Tartrate (Ambien) 5 mg PRN QHS PRN PO INSOMNIA; Start 12/15/19 at 20:00 Enoxaparin Sodium (Lovenox 40mg Syringe) 40 mg DAILY SQ Last administered on 12/16/19at 08:42; Start 12/16/19 at 09:00 Potassium Chloride (Klor-Con) 40 meq 1X ONCE PO Last administered on 12/15/19at 21:14; Start 12/15/19 at 21:30; Stop 12/15/19 at 21:31; Status DC Active Scripts Active Reported No Known Medications Prior To Admisstion (Info) Each 1 Each Vitals/I & O Vital Sign - Last 24 Hours 12/15/19 12/15/19 12/15/19 12/15/19 13:40 14:13 14:28 14:39 Temp 98.2 98.2 Pulse 95 96 98 Resp 22 B/P (MAP) 141/62 (88) 114/56 (75) 126/59 (81) Pulse Ox 98 98 98 98 O2 Delivery Room Air Room Air Room Air Room Air 12/15/19 12/15/19 12/15/19 12/15/19 14:43 14:58 15:13 15:28 Pulse 96 84 88 80 Resp 20 B/P (MAP) 142/62 (88) 152/67 (95) 143/65 (91) 144/66 (92) Pulse Ox 97 96 98 98 O2 Delivery Room Air Room Air Room Air Room Air 12/15/19 12/15/19 12/15/19 12/15/19 16:28 16:43 17:13 17:28 Pulse 94 90 95 90 Resp 20 B/P (MAP) 134/61 (85) 133/63 (86) 139/66 (90) 140/75 (96) Pulse Ox 96 97 98 99 O2 Delivery Room Air Room Air Room Air Room Air 12/15/19 12/15/19 12/15/19 12/15/19 17:43 17:58 20:00 20:51 Temp 98.4 98.4 Pulse 88 88 88 Resp 18 15 18 B/P (MAP) 137/81 (99) 146/70 (95) 153/66 (95) Pulse Ox 97 98 96 O2 Delivery Room Air Room Air Room Air Room Air 12/15/19 12/15/19 12/15/19 12/16/19 21:14 22:14 23:48 01:36 Temp 96.5 96.5 Pulse 85 Resp 18 22 16 20 B/P (MAP) 155/70 (98) Pulse Ox 96 96 O2 Delivery Room Air Room Air Room Air 12/16/19 12/16/19 12/16/19 02:36 03:50 07:40 Temp 96.8 97.0 96.8 97.0 Pulse 88 83 Resp 22 16 20 B/P (MAP) 146/61 (89) 156/67 (96) Pulse Ox 96 97 98 O2 Delivery Room Air Room Air Room Air Intake and Output 12/15/19 12/15/19 12/16/19 15:00 23:00 07:00 Intake Total 480 ml Output Total 200 ml Balance 280 ml Justicifation of Admission Dx: Justifications for Admission: Justification of Admission Dx: Yes DEBORAH LEI MD Dec 16, 2019 10:49
[2019-12-16 11:20] VITALS: BP 157/67
[2019-12-16] MEDS ORDERED: HYDR-2759 PO (12:45)
[2019-12-16] MEDS ORDERED: LISI10TA2 PO (12:45)
[2019-12-16] MEDS ORDERED: BACL10TA PO (12:45)
[2019-12-16] MEDS ORDERED: AMLO10TA8 PO (12:45)
[2019-12-16] MEDS ORDERED: TIOT18CA IH (12:45)
--- NOTE | 2019-12-16 14:46 | PDOC2 ---
CARDIOLOGY CONSULT NOTE DATE OF SERVICE: DATE: 12/16/19 TIME: 14:43 CHIEF COMPLAINT: Chest discomfort HPI: Mr. Cervantes is a pleasant 59-year-old man who comes to the hospital in the setting of various issues. His main concerns for admission were related to homelessness according to him and also some chest discomfort. He does not have any baseline dyspnea and has had difficulty walking due to prior disability. He does not have the use of his left arm according to him. He denies any syncope or palpitations. He reports musculoskeletal type chest pain. He does not have any clear evidence of angina. PMHX: Reactive airway disease Polysubstance abuse prior history of PCP use SOCHX: As noted above FAMHX: Noncontributory CURRENT MEDS: Current Medications Medications (Trade) Dose Ordered Sig/Mohan Route PRN Reason Start Time Stop Time Status Last Admin Dose Admin Oxycodone/ Acetaminophen (Percocet 5/325) 1 tab PRN Q4HRS PRN PO PAIN 12/15/19 20:00 12/16/19 12:02 Enoxaparin Sodium (Lovenox 40mg Syringe) 40 mg DAILY SQ 12/16/19 09:00 12/16/19 08:42 Potassium Chloride (Klor-Con) 40 meq 1X ONCE PO 12/15/19 21:30 12/15/19 21:31 DC 12/15/19 21:14 ALLERGIES: Allergies Coded Allergies Type Severity Reaction Last Updated Verified No Known Drug Allergies 08/01/18 No ROS: Negative unless otherwise mentioned above in HPI PHYSICAL EXAM: Vital Signs/I&O: Vital Signs Date Time Temp Pulse Resp B/P (MAP) Pulse Ox O2 Delivery O2 Flow Rate FiO2 12/16/19 12:02 98 Room Air 12/16/19 11:20 98.2 62 18 157/67 (97) 98.2 I & O 12/15/19 12/15/19 12/16/19 15:00 23:00 07:00 Intake Total 480 ml Output Total 200 ml Balance 280 ml Physical Exam: General: Alert, Cooperative, mild distress HEENT: Atraumatic, PERRLA Lungs: Other (rales, mod vol) Abdomen: Soft Extremities: No cyanosis Skin: No rashes, Other (dry, flaking skin) Neuro: Sensation intact Psych/Mental Status: Mood NL DIAGNOSTIC TESTING: Troponin negative EKG is unremarkable for any acute ischemia Labs reviewed. CCP positive again Lab Laboratory Tests Test 12/16/19 03:30 White Blood Count 6.1 x10^3/uL (4.0-11.0) Red Blood Count 4.49 x10^6/uL (4.30-5.70) Hemoglobin 14.1 g/dL (13.0-17.5) Hematocrit 42.2 % (39.0-53.0) Mean Corpuscular Volume 94 fL (79-100) Mean Corpuscular Hemoglobin 31 pg (25-35) Mean Corpuscular Hemoglobin Concent 33 g/dL (31-37) Red Cell Distribution Width 13.9 % (11.5-14.5) Platelet Count 238 x10^3/uL (140-400) Neutrophils (%) (Auto) 64 % (31-73) Lymphocytes (%) (Auto) 19 % (24-48) L Monocytes (%) (Auto) 11 % (0-9) H Eosinophils (%) (Auto) 5 % (0-3) H Basophils (%) (Auto) 0 % (0-3) Neutrophils # (Auto) 3.9 x10^3/uL (1.8-7.7) Lymphocytes # (Auto) 1.2 x10^3/uL (1.0-4.8) Monocytes # (Auto) 0.7 x10^3/uL (0.0-1.1) Eosinophils # (Auto) 0.3 x10^3/uL (0.0-0.7) Basophils # (Auto) 0.0 x10^3/uL (0.0-0.2) Sodium Level 142 mmol/L (136-145) Potassium Level 4.0 mmol/L (3.5-5.1) Chloride Level 106 mmol/L (98-107) Carbon Dioxide Level 31 mmol/L (21-32) Anion Gap 5 (6-14) L Blood Urea Nitrogen 16 mg/dL (8-26) Creatinine 0.6 mg/dL (0.7-1.3) L Estimated GFR (Cockcroft-Gault) 165.7 BUN/Creatinine Ratio 27 (6-20) H Glucose Level 120 mg/dL (70-99) H Calcium Level 8.0 mg/dL (8.5-10.1) L Total Bilirubin 0.2 mg/dL (0.2-1.0) Aspartate Amino Transf (AST/SGOT) 12 U/L (15-37) L Alkaline Phosphatase 109 U/L (46-116) Total Protein 6.2 g/dL (6.4-8.2) L Albumin 2.9 g/dL (3.4-5.0) L Albumin/Globulin Ratio 0.9 (1.0-1.7) L Cholesterol Level 155 mg/dL (0-200) LDL Cholesterol, Calculated 87 mg/dL (0-100) VLDL Cholesterol, Calculated 16 mg/dL (0-40) Non-HDL Cholesterol Calculated 103 mg/dL (0-129) Cholesterol/HDL Ratio 3.0 Laboratory Tests 12/16/19 03:30 ASSESSMENT: 1. Noncardiac chest pain 2. Prior history of polysubstance abuse PLAN: 1. The patient has a fairly low risk presentation. EKG and cardiac enzymes are unremarkable. No further inpatient cardiac testing necessary. Can follow-up with the primary care physician for further evaluation as needed. Thank you for this consultation. Please call with any further questions. GURPREET GRANADOS MD Dec 16, 2019 14:46
[2019-12-16 15:15] VITALS: BP 146/57
[2019-12-16 19:43] VITALS: BP 143/67
[2019-12-16] MEDS ORDERED: IPRATRPIUM/ALBUTEROL 0.5/2.5MG 3 ML NEBU. NEB SCH (20:00)
[2019-12-16] MEDS: BACLOFEN 10 MG TABLET. PO SCH (21:57)
[2019-12-16 23:36] VITALS: BP 148/67
[2019-12-17 03:47] VITALS: BP 125/62
[2019-12-17] MEDS: oxyCODONE/APAP 5/325 1 TAB TABLET PO PRN ×3 (04:12→21:06)
[2019-12-17 07:30] VITALS: BP 142/62
[2019-12-17] MEDS: BACLOFEN 10 MG TABLET. PO SCH ×3 (08:16→20:59)
[2019-12-17] MEDS: ENOXAPARIN 40 MG/0.4 ML SYRINGE. SQ SCH (08:16)
[2019-12-17] MEDS: amLODIPine BESYLATE 10 MG TABLET PO SCH (08:17)
[2019-12-17] MEDS: LISINOPRIL 10 MG TABLET PO SCH (08:18)
[2019-12-17] MEDS ORDERED: NON FORMULARY ITEM (Tiotropium Bromide (Spiriva) 1 CAP) IH SCH (09:00)
[2019-12-17 11:00] VITALS: BP 123/57
--- NOTE | 2019-12-17 11:50 | PDOC ---
PROGRESS NOTES Date of Service: DATE: 12/17/19 TIME: 11:50 Chief Complaint Chief Complaint VTE Prophylaxis Ordered VTE Prophylaxis Devices: No VTE Pharmacological Prophylaxi: Yes Assessment/Plan cough, weakness, arm pain, chest pain COVID-19 NEG 12/16 admit to r/o COVID 19, seen in full PPE will also check for ACS, give proph lvoenox, he feels too weak and short of breath to go home, complains of severe pain ct chest pending D/W RN Justicifation of Admission Dx: Justicifation of Admission Dx: Justifications for Admission: Justification of Admission Dx: Yes History of Present Illness History of Present Illness History of Present Illness History of Present Illness Mr. Guerrero, is a 59-year-old male admit for arm pain, and chest pain. he also complains of pressure and shortness of breath. He is had some chronic pain but feels that this is different than usual. He has been living in abandoned houses and is unable to take care of himself. He signed himself out of a living facility because he did not feel it was safe and has been working with his insurance company to try to get placement. . COVID test done and he will be admitted as PUI. muscle pain in arms possible Past Medical History Cardiovascular: No pertinent hx Pulmonary: No pertinent hx Social History Smoke: <1 pack per day ALCOHOL: social Drugs: None Vitals Vitals Vital Signs Date Time Temp Pulse Resp B/P (MAP) Pulse Ox O2 Delivery O2 Flow Rate FiO2 12/17/19 11:00 98.0 86 16 123/57 (79) 98 Room Air 98.0 Physical Exam General: Alert, Oriented X3, Cooperative, No acute distress Heart: Regular rate Lungs: Clear Abdomen: Soft Extremities: No clubbing, No cyanosis Skin: No rashes, Other (dry, flaking skin) Assessment and Plan Assessmemt and Plan Problems Medical Problems: (1) Chest pain Status: Acute (2) Difficulty with activities of daily living Status: Acute Comment Review of Relevant I have reviewed the following items rosy (where applicable) has been applied. Labs Laboratory Tests Test 12/15/19 14:10 12/15/19 14:40 12/16/19 03:30 White Blood Count 5.7 x10^3/uL (4.0-11.0) 6.1 x10^3/uL (4.0-11.0) Red Blood Count 4.61 x10^6/uL (4.30-5.70) 4.49 x10^6/uL (4.30-5.70) Hemoglobin 14.6 g/dL (13.0-17.5) 14.1 g/dL (13.0-17.5) Hematocrit 43.2 % (39.0-53.0) 42.2 % (39.0-53.0) Mean Corpuscular Volume 94 fL (79-100) 94 fL (79-100) Mean Corpuscular Hemoglobin 32 pg (25-35) 31 pg (25-35) Mean Corpuscular Hemoglobin Concent 34 g/dL (31-37) 33 g/dL (31-37) Red Cell Distribution Width 13.7 % (11.5-14.5) 13.9 % (11.5-14.5) Platelet Count 251 x10^3/uL (140-400) 238 x10^3/uL (140-400) Neutrophils (%) (Auto) 67 % (31-73) 64 % (31-73) Lymphocytes (%) (Auto) 15 % (24-48) 19 % (24-48) Monocytes (%) (Auto) 12 % (0-9) 11 % (0-9) Eosinophils (%) (Auto) 5 % (0-3) 5 % (0-3) Basophils (%) (Auto) 1 % (0-3) 0 % (0-3) Neutrophils # (Auto) 3.9 x10^3/uL (1.8-7.7) 3.9 x10^3/uL (1.8-7.7) Lymphocytes # (Auto) 0.9 x10^3/uL (1.0-4.8) 1.2 x10^3/uL (1.0-4.8) Monocytes # (Auto) 0.7 x10^3/uL (0.0-1.1) 0.7 x10^3/uL (0.0-1.1) Eosinophils # (Auto) 0.3 x10^3/uL (0.0-0.7) 0.3 x10^3/uL (0.0-0.7) Basophils # (Auto) 0.0 x10^3/uL (0.0-0.2) 0.0 x10^3/uL (0.0-0.2) D-Dimer (Janette) 0.34 ug/mlFEU (0.00-0.50) Sodium Level 144 mmol/L (136-145) 142 mmol/L (136-145) Potassium Level 3.3 mmol/L (3.5-5.1) 4.0 mmol/L (3.5-5.1) Chloride Level 106 mmol/L (98-107) 106 mmol/L (98-107) Carbon Dioxide Level 32 mmol/L (21-32) 31 mmol/L (21-32) Anion Gap 6 (6-14) 5 (6-14) Blood Urea Nitrogen 16 mg/dL (8-26) 16 mg/dL (8-26) Creatinine 0.9 mg/dL (0.7-1.3) 0.6 mg/dL (0.7-1.3) Estimated GFR (Cockcroft-Gault) 103.8 165.7 BUN/Creatinine Ratio 18 (6-20) 27 (6-20) Glucose Level 119 mg/dL (70-99) 120 mg/dL (70-99) Calcium Level 8.2 mg/dL (8.5-10.1) 8.0 mg/dL (8.5-10.1) Total Bilirubin 0.4 mg/dL (0.2-1.0) 0.2 mg/dL (0.2-1.0) Aspartate Amino Transf (AST/SGOT) 14 U/L (15-37) 12 U/L (15-37) Alanine Aminotransferase (ALT/SGPT) 21 U/L (16-63) 20 U/L (16-63) Alkaline Phosphatase 112 U/L (46-116) 109 U/L (46-116) Lactate Dehydrogenase 176 U/L (85-227) Creatine Kinase 64 U/L (39-308) Troponin I Quantitative < 0.017 ng/mL (0.000-0.055) < 0.017 ng/mL (0.000-0.055) C-Reactive Protein, Quantitative 33.6 mg/L (0-3.3) RK-Cxc-C-Type Natriuretic Peptide 367 pg/mL (0-124) Total Protein 6.8 g/dL (6.4-8.2) 6.2 g/dL (6.4-8.2) Albumin 3.0 g/dL (3.4-5.0) 2.9 g/dL (3.4-5.0) Albumin/Globulin Ratio 0.8 (1.0-1.7) 0.9 (1.0-1.7) Coronavirus (PCR) Not detected (Not Detected) Triglycerides Level 80 mg/dL (0-150) Cholesterol Level 155 mg/dL (0-200) LDL Cholesterol, Calculated 87 mg/dL (0-100) VLDL Cholesterol, Calculated 16 mg/dL (0-40) Non-HDL Cholesterol Calculated 103 mg/dL (0-129) HDL Cholesterol 52 mg/dL (40-60) Cholesterol/HDL Ratio 3.0 Medications Current Medications Acetaminophen/ Hydrocodone Bitart (Lortab 5/325) 1 tab 1X ONCE PO Last administered on 12/15/19at 14:39; Start 12/15/19 at 14:30; Stop 12/15/19 at 14:31; Status DC Cyclobenzaprine HCl (Flexeril) 10 mg PRN Q6HRS PRN PO MUSCLE SPASMS Last administered on 12/16/19at 16:52; Start 12/15/19 at 20:00 Nicotine (Nicoderm Cq 21mg) 1 patch PRN DAILY PRN TD SMOKING CESSATION; Start 12/15/19 at 20:00 Oxycodone/ Acetaminophen (Percocet 5/325) 1 tab PRN Q4HRS PRN PO PAIN Last administered on 12/17/19at 04:12; Start 12/15/19 at 20:00 Morphine Sulfate (Morphine Sulfate) 4 mg PRN Q2HR PRN IV PAIN; Start 12/15/19 at 20:00 Enoxaparin Sodium (Lovenox Per Pharmacy Prophylaxis Dosing) 1 each PRN DAILY PRN MC SEE COMMENTS; Start 12/15/19 at 20:00 Zolpidem Tartrate (Ambien) 5 mg PRN QHS PRN PO INSOMNIA; Start 12/15/19 at 20:00 Enoxaparin Sodium (Lovenox 40mg Syringe) 40 mg DAILY SQ Last administered on 12/17/19at 08:16; Start 12/16/19 at 09:00 Potassium Chloride (Klor-Con) 40 meq 1X ONCE PO Last administered on 12/15/19at 21:14; Start 12/15/19 at 21:30; Stop 12/15/19 at 21:31; Status DC Amlodipine Besylate (Norvasc) 10 mg DAILY PO Last administered on 12/17/19at 08:17; Start 12/17/19 at 09:00 Baclofen (Lioresal) 10 mg TID PO Last administered on 12/17/19at 08:16; Start 12/16/19 at 21:00 Lisinopril (Prinivil) 10 mg DAILY PO Last administered on 12/17/19at 08:18; Start 12/17/19 at 09:00 Non-Formulary Medication (Tiotropium [place] (Spiriva)) 1 cap DAILY IH ; Start 12/17/19 at 09:00; Status UNV Albuterol/ Ipratropium (Duoneb) 3 ml RTQID NEB ; Start 12/16/19 at 20:00; Stop 12/16/19 at 19:15; Status DC Albuterol/ Ipratropium (Duoneb) 3 ml RTQID NEB ; Start 12/17/19 at 20:00 Active Scripts Active Reported Spiriva (Tiotropium [place]) 18 Mcg Cap.w.dev 1 Cap IH DAILY Hydrocodone-Acetamin 5-325 mg (Hydrocodone/Acetaminophen) 1 Each Tablet 1 Each PO Q6HRS Baclofen 10 Mg Tablet 10 Mg PO TID Amlodipine Besylate 10 Mg Tablet 10 Mg PO DAILY Lisinopril 10 Mg Tablet 1 Tab PO DAILY Vitals/I & O Vital Sign - Last 24 Hours 12/16/19 12/16/19 12/16/19 12/16/19 12:02 13:10 15:15 16:52 Temp 98.2 98.2 Pulse 70 Resp 19 18 18 B/P (MAP) 146/57 (86) Pulse Ox 98 98 98 98 O2 Delivery Room Air Room Air Room Air Room Air 12/16/19 12/16/19 12/16/19 12/16/19 17:55 19:43 21:57 22:00 Temp 97.7 97.7 Pulse 85 Resp 18 20 B/P (MAP) 143/67 (92) Pulse Ox 98 98 98 O2 Delivery Room Air Room Air Room Air Room Air 12/16/19 12/17/19 12/17/19 12/17/19 23:36 03:47 07:30 08:00 Temp 98.5 97.7 97.9 98.5 97.7 97.9 Pulse 77 73 90 Resp 18 16 16 B/P (MAP) 148/67 (94) 125/62 (83) 142/62 (88) Pulse Ox 97 97 98 O2 Delivery Room Air Room Air Room Air Room Air 12/17/19 12/17/19 12/17/19 08:17 08:18 11:00 Temp 98.0 98.0 Pulse 85 70 86 Resp 16 B/P (MAP) 142/62 142/62 123/57 (79) Pulse Ox 98 O2 Delivery Room Air Intake and Output 12/16/19 12/16/19 12/17/19 15:00 23:00 07:00 Intake Total 500 ml 350 ml Output Total 350 ml 180 ml 450 ml Balance 150 ml 170 ml -450 ml Justicifation of Admission Dx: Justifications for Admission: Justification of Admission Dx: Yes DEBORAH LEI MD Dec 17, 2019 11:50
--- NOTE | 2019-12-17 13:54 | NUR ---
Patient is COVID negative. Spoke to Dr. Capone regarding patient's status, this nurse was instructed to keep the patient on telemetry monitoring.
[2019-12-17 15:58] VITALS: BP 133/60
[2019-12-17 17:30] LABS: CALCIUM 8.4 mg/dL (8.5-10.1); CREATININE 0.6 mg/dL (0.7-1.3); GFR 165.7; POTASSIUM 3.8 mmol/L (3.5-5.1)
[2019-12-17] MEDS: IPRATRPIUM/ALBUTEROL 0.5/2.5MG 3 ML NEBU. NEB SCH (19:25)
[2019-12-17 21:30] VITALS: BP 132/60
--- NOTE | 2019-12-17 23:29 | RAD ---
ABDOMEN COMPLETE Realtime grayscale images of the abdomen with color and pulsed doppler utilized as appropriate. History: pain Comparison: None. Findings: The liver is normal in appearance and echogenicity. No intrahepatic biliary ductal dilatation or mass is seen. No gallstones, pericholecystic fluid, or gallbladder wall thickening are seen. The common bile duct is normal in diameter and measures 0.3 cm. Portal Vein flow is hepatopetal. The pancreas is normal in appearance, although the tail is not well visualized. The aorta and IVC are normal diameter where visualized. The right kidney measures 10.5 cm in length. Small cleft in the superior pole of the right kidney getting slightly lobulated appearance, likely congenital. The left kidney is normal in appearance, measuring 10.6 cm in length. No hydronephrosis or perinephric fluid are seen bilaterally. The spleen is normal in appearance and measures 8.1 cm. Impression: Normal gallbladder. Normal caliber common bile duct. No hydronephrosis. Electronically signed by: Paxton Rice MD (12/17/2019 11:26 PM) [facility]
[2019-12-18 00:31] VITALS: BP 127/60
[2019-12-18 05:05] VITALS: BP 132/61
[2019-12-18 07:12] VITALS: BP 137/63
[2019-12-18] MEDS: IPRATRPIUM/ALBUTEROL 0.5/2.5MG 3 ML NEBU. NEB SCH ×2 (08:03→11:49)
--- NOTE | 2019-12-18 09:23 | RAD ---
CT CHEST WO CONTRAST INDICATION: Reason: chest pain / Spl. Instructions: / History: . COMPARISON STUDY: Chest radiograph 12/15/2019. CT chest 11/01/2011. TECHNIQUE: Unenhanced axial images were obtained through the lungs and upper abdomen. Coronal and sagittal multiplanar reconstructions were also obtained. PQRS compliance statement: One or more of the following individualized dose reduction techniques were utilized for this examination: 1. Automated exposure control 2. Adjustment of the mA and/or kV according to patient size 3. Use of iterative reconstruction technique FINDINGS: Lungs and Airways: Very mild ground glass opacities in the right upper lobe. Bibasilar dependent and subsegmental atelectasis. Centrilobular emphysema. Normal central airways. Pleura: The pleural spaces are normal. Heart and Mediastinum: The visualized thyroid gland is normal in size and attenuation. No axillary or supraclavicular lymphadenopathy. No mediastinal, hilar or retrocrural lymphadenopathy. Normal cardiac size. No pericardial effusion. Coronary artery atherosclerotic disease. Atherosclerosis of the thoracic aorta and branch vessels. Abdomen: The visualized abdominal organs demonstrate no abnormality. Bones and Soft Tissues: Degenerative changes of the spine. IMPRESSION: 1. Very mild groundglass opacities in the right upper lobe, which may represent an infectious/inflammatory process. 2. Coronary artery atherosclerotic disease. Electronically signed by: Paxton Rice MD (12/18/2019 9:20 AM) [id number]
[2019-12-18] MEDS: ENOXAPARIN 40 MG/0.4 ML SYRINGE. SQ SCH (09:31)
[2019-12-18] MEDS: oxyCODONE/APAP 5/325 1 TAB TABLET PO PRN ×2 (09:31→13:56)
[2019-12-18] MEDS: BACLOFEN 10 MG TABLET. PO SCH ×2 (09:31→13:55)
[2019-12-18] MEDS: LISINOPRIL 10 MG TABLET PO SCH (09:32)
[2019-12-18] MEDS: amLODIPine BESYLATE 10 MG TABLET PO SCH (09:32)
--- NOTE | 2019-12-18 09:41 | NUR ---
SW following. Spoke with RN and reviewed chart. Pt homeless. Pt has Medicaid. Pt can't care for himself per his report. Pt on room air and oral medications/IV morphine. Pt COVID negative. ARTEM completed Patient Choice of Vendor form- no preference. ARTEM phoned and faxed [facility] referrals to [place], , (fax) and [facility], , (fax). ARTEM to follow. Addendum: 12/18/19 at 1334 by GIOVANI MCGILL Pt accepted at [facility]. Cristine Blount to do CARE. ARTEM phoned and faxed discharge orders. [facility] to transport at 1500. Packet of clinicals ready to be sent with pt. RN to call report. No further ARTEM needs at this time. Addendum: 12/18/19 at 1413 by GIOVANI MCGILL CARE assessment done and signed by pt (ARTEM sent copy to [facility] and there is a copy on the chart). Pt agreeable to the discharge plan and stated appreciation.
[2019-12-18 11:19] VITALS: BP 136/62
--- NOTE | 2019-12-18 13:11 | PDOC ---
[employer] PROGRESS NOTE Date of Service DOS: DATE: 12/18/19 TIME: 13:06 Chief Complaint Chief Complaint A/P: cough, weakness, arm pain, chest pain COVID-19 NEG 12/16 JAKE - vasomotor nephropathy History of Present Illness History of Present Illness Mr. Guerrero, is a 59-year-old male with PMHx polysubtance use, housing insecure, left arm contracture admit for arm pain, and chest pain. he also complains of pressure and shortness of breath. He is had some chronic pain but feels that this is different than usual. He has been living in abandoned houses and is unable to take care of himself. He signed himself out of a living facility because he did not feel it was safe and has been working with his insurance company to try to get placement. Had CT chest with mild groundglass opacity in right upper lobe. No new cough or fevers. COVID19 negative. Has poor self care and bilateral shoulder pain he notes is chronic and is unable to care for himself. He was also dehydrated with Cr 0.9-->0.6 after IV fluid administration CT CHEST: Lungs and Airways: Very mild ground glass opacities in the right upper lobe. Bibasilar dependent and subsegmental atelectasis. Centrilobular emphysema. Normal central airways. Pleura: The pleural spaces are normal. Heart and Mediastinum: The visualized thyroid gland is normal in size and attenuation. No axillary or supraclavicular lymphadenopathy. No mediastinal, hilar or retrocrural lymphadenopathy. Normal cardiac size. No pericardial effusion. Coronary artery atherosclerotic disease. Atherosclerosis of the thoracic aorta and branch vessels. Abdomen: The visualized abdominal organs demonstrate no abnormality. Bones and Soft Tissues: Degenerative changes of the spine. IMPRESSION: 1. Very mild groundglass opacities in the right upper lobe, which may represent an infectious/inflammatory process. 2. Coronary artery atherosclerotic disease. Vitals/I&O Vitals/I&O: Vital Signs Date Time Temp Pulse Resp B/P (MAP) Pulse Ox O2 Delivery O2 Flow Rate FiO2 12/18/19 11:49 Room Air 12/18/19 11:19 97.5 85 13 136/62 (86) 90 97.5 I & O 12/17/19 12/17/19 12/18/19 15:00 23:00 07:00 Intake Total 440 ml 300 ml Output Total 400 ml 200 ml 225 ml Balance 40 ml 100 ml -225 ml Physical Exam General: Alert, Oriented X3, Cooperative, No acute distress Heart: Regular rate Lungs: Clear Abdomen: Soft Extremities: No clubbing, No cyanosis Skin: No rashes, Other (dry, flaking skin) Labs Labs: Laboratory Tests Test 12/17/19 17:05 Sodium Level 141 mmol/L (136-145) Potassium Level 3.8 mmol/L (3.5-5.1) Chloride Level 105 mmol/L (98-107) Carbon Dioxide Level 34 mmol/L (21-32) Anion Gap 2 (6-14) Blood Urea Nitrogen 18 mg/dL (8-26) Creatinine 0.6 mg/dL (0.7-1.3) Estimated GFR (Cockcroft-Gault) 165.7 Glucose Level 122 mg/dL (70-99) Calcium Level 8.4 mg/dL (8.5-10.1) Assessment and Plan Assessmemt and Plan Problems Medical Problems: (1) Chest pain Status: Acute (2) Difficulty with activities of daily living Status: Acute Comment Review of Relevant I have reviewed the following items rosy (where applicable) has been applied. Medications: Current Medications Medications (Trade) Dose Ordered Sig/Mohan Route PRN Reason Start Time Stop Time Status Last Admin Dose Admin Albuterol/ Ipratropium (Duoneb) 3 ml RTQID NEB 12/17/19 20:00 12/18/19 11:49 Justicifation of Admission Dx: Justifications for Admission: Justification of Admission Dx: Yes SAMSON CONTRERAS MD Dec 18, 2019 13:11
[2019-12-18] MEDS ORDERED: IPRA3AMP29 NEB (13:12)
[2019-12-18] MEDS ORDERED: HYDR-2759 PO (13:12)
--- NOTE | 2019-12-18 13:13 | SNU/HH DC ---
DISCHARGE ORDERS DISCHARGE INFORMATION: DISCHARGE DATE: Dec 18, 2019 FINAL DIAGNOSIS Problems Medical Problems: (1) Chest pain Status: Acute (2) Difficulty with activities of daily living Status: Acute CONDITION ON DISCHARGE: Stable CODE STATUS: Code Status: Full POST DISCHARGE ORDERS: ACTIVITY ORDERS: Activity as tolerated WEIGHT BEARING STATUS: As tolerated DIET AFTER DISCHARGE: Regular WOUND/INCISION CARE: No wound care needed TREATMENT/EQUIPMENT ORDERS: ADAPTIVE EQUIPMENT NEEDED: None DISCHARGE MEDICATIONS: Home Meds Active Scripts Ipratropium/Albuterol Sulfate (DUONEB 0.5-3(2.5) MG/3 ML) 3 Ml Ampul.neb, 3 ML NEB RTQID for Bronchitis for 30 Days, #120 EACH 2 Refills Prov:SAMSON CONTRERAS MD 12/18/19 Hydrocodone/Acetaminophen (Hydrocodone-Acetamin 5-325 mg) 1 Each Tablet, 1 EACH PO PRN Q6HRS PRN for PAIN for 6 Days, #15 TAB Prov:SAMSON CONTRERAS MD 12/18/19 Reported Medications Tiotropium [place] (SPIRIVA) 18 Mcg Cap.w.dev, 1 CAP IH DAILY for COPD, #30 CAP 3 Refills 12/16/19 Baclofen (BACLOFEN) 10 Mg Tablet, 10 MG PO TID for MUSCLE 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
--- NOTE | 2019-12-18 14:18 | NUR ---
Report called to Gneevieve at [facility].
--- NOTE | 2019-12-18 15:05 | NUR ---
Pt discharged to [facility] per wheelchair transport.
--- NOTE | 2019-12-18 22:22 | PDOC3 ---
Discharge Summary Visit Information Date of Admission: Dec 15, 2019 Date of Discharge: Dec 18, 2019 Admitting Diagnosis: Chest pain Final Diagnosis Problems Medical Problems: (1) Chest pain Status: Acute (2) Difficulty with activities of daily living Status: Acute Brief Hospital Course Allergies Allergies Coded Allergies Type Severity Reaction Last Updated Verified No Known Drug Allergies 08/01/18 No Vital Signs Vital Signs Date Time Temp Pulse Resp B/P (MAP) Pulse Ox O2 Delivery O2 Flow Rate FiO2 12/18/19 14:56 18 Room Air 12/18/19 11:19 97.5 85 136/62 (86) 90 97.5 Lab Results Laboratory Tests Test 12/17/19 17:05 Sodium Level 141 mmol/L (136-145) Potassium Level 3.8 mmol/L (3.5-5.1) Chloride Level 105 mmol/L (98-107) Carbon Dioxide Level 34 mmol/L (21-32) Anion Gap 2 (6-14) Blood Urea Nitrogen 18 mg/dL (8-26) Creatinine 0.6 mg/dL (0.7-1.3) Estimated GFR (Cockcroft-Gault) 165.7 Glucose Level 122 mg/dL (70-99) Calcium Level 8.4 mg/dL (8.5-10.1) Brief Hospital Course Mr. Guerrero, is a 59-year-old male with PMHx polysubtance use, housing insecure, left arm contracture admit for arm pain, and chest pain. he also complains of pressure and shortness of breath. He is had some chronic pain but feels that this is different than usual. He has been living in abandoned houses and is unable to take care of himself. He signed himself out of a living facility because he did not feel it was safe and has been working with his insurance company to try to get placement. Had CT chest with mild groundglass opacity in right upper lobe. No new cough or fevers. COVID19 negative. Has poor self care and bilateral shoulder pain he notes is chronic and is unable to care for himself. He was also dehydrated with Cr 0.9-->0.6 after IV fluid administration CT CHEST: Lungs and Airways: Very mild ground glass opacities in the right upper lobe. Bibasilar dependent and subsegmental atelectasis. Centrilobular emphysema. Normal central airways. Pleura: The pleural spaces are normal. Heart and Mediastinum: The visualized thyroid gland is normal in size and attenuation. No axillary or supraclavicular lymphadenopathy. No mediastinal, hilar or retrocrural lymphadenopathy. Normal cardiac size. No pericardial effusion. Coronary artery atherosclerotic disease. Atherosclerosis of the thoracic aorta and branch vessels. Abdomen: The visualized abdominal organs demonstrate no abnormality. Bones and Soft Tissues: Degenerative changes of the spine. IMPRESSION: 1. Very mild groundglass opacities in the right upper lobe, which may represent an infectious/inflammatory process. 2. Coronary artery atherosclerotic disease. Consults: Cardiology Problem list: cough - reactive airway disease weakness, arm pain, chest pain COVID-19 NEG 12/16 JAKE - vasomotor nephropathy Due to inability to care for himself he is emergently being placed in long term care pharmacist SNF. Greater than 30 minutes spent on d/c to SNF Discharge Information Condition at Discharge: Stable Follow Up: Weeks (1) Disposition/Orders: D/C to Another Facility Scheduled Amlodipine Besylate (Amlodipine Besylate) 10 Mg Tablet, 10 MG PO DAILY for hypertension, (Reported) Entered as Reported by: BILL LOZANO on 12/16/191244 Last Taken: Unknown Dose on Unknown Date & Time Last Action: Continued on 12/16/191824 by BILL LOZANO Baclofen (Baclofen) 10 Mg Tablet, 10 MG PO TID for MUSCLE RELAXER, #30 Ref 0 (Reported) Entered as Reported by: BILL LOZANO on 12/16/191244 Last Taken: Unknown Dose on Unknown Date & Time Last Action: Continued on 12/16/191824 by BILL LOZANO Ipratropium/Albuterol Sulfate (Duoneb 0.5-3(2.5) Mg/3 Ml) 3 Ml Ampul.neb, 3 ML NEB RTQID for Bronchitis for 30 Days, #120 Ref 2 Prescribed by: SAMSON CONTRERAS MD on 12/18/19 1312 Lisinopril (Lisinopril) 10 Mg Tablet, 1 TAB PO DAILY for hypertension, #30 Ref 5 (Reported) Entered as Reported by: BILL LOZANO on 12/16/191244 Last Taken: Unknown Dose on Unknown Date & Time Last Action: Continued on 12/16/191824 by BILL LOZANO Tiotropium [place] (Spiriva) 18 Mcg Cap.w.dev, 1 CAP IH DAILY for COPD, #30 Ref 3 (Reported) Entered as Reported by: BILL LOZANO on 12/16/19 1245 Last Taken: Unknown Dose on Unknown Date & Time Last Action: Converted on 12/16/191824 by BILL LOZANO Scheduled PRN Hydrocodone/Acetaminophen (Hydrocodone-Acetamin 5-325 mg) 1 Each Tablet, 1 EACH PO PRN Q6HRS PRN for PAIN for 6 Days, #15 Prescribed by: SAMSON CONTRERAS MD on 12/18/19 1312 Discontinued Medications Info (No Known Medications Prior To Admisstion) Each, 1 EACH , (Reported) Entered as Reported by: ROBERT AUGUSTE on 08/01/18 2250 Last Action: Discontinued on 12/16/19 1241 by BILL LOZANO Justicifation of Admission Dx: Justifications for Admission: Justification of Admission Dx: Yes SAMSON CONTRERAS MD Dec 18, 2019 22:21
== END 2019-12-18 15:05 | DRG 391 ==
LOC: ER 13:18 → ED HOLD 16:37 → 6 SOUTH 16:40
PROVIDERS: ADMIT Internal Medicine; ATTEND Internal Medicine
DX: K21.9 Gastro-esophageal reflux disease without esophagitis (principal); N17.0 Acute kidney failure with tubular necrosis; I10 Essential (primary) hypertension; E86.0 Dehydration; F17.210 Nicotine dependence, cigarettes, uncomplicated; G89.29 Other chronic pain; I25.10 Atherosclerotic heart disease of native coronary artery without angina pectoris; I70.0 Atherosclerosis of aorta; J43.2 Centrilobular emphysema; Z20.828 Contact with and (suspected) exposure to other viral communicable diseases
CPT/HCPCS: 36415; 71045; 71250; 76700; 80048; 80053; 80061; 82550; 83615; 83880; 84484; 85025; 85379; 86140; 93005; 94640; 99285; J1650; G0378; U0003-CS

== ENCOUNTER 2020-01-18 16:59 | Emergency (ER) | payer OTHER ==
[~2020-01-18] VITALS: Ht 180.3 cm; Wt 71.0 kg
[~2020-01-18 16:59] MED LIST: AMLO10TA8 PO; BACL10TA PO; HYDR-2759 PO; IPRA3AMP29 NEB; LISI10TA2 PO; TIOT18CA IH
[2020-01-18 18:31] LABS: BASO % 1 % (0-3); EOS # 0.1 x10^3/uL (0.0-0.7); EOS % 2 % (0-3); HEMATOCRIT 44.1 % (39.0-53.0); HEMOGLOBIN 15.1 g/dL (13.0-17.5); LYMPH % 16 % (24-48); MEAN CORPUSCULAR HEMOGLOBIN 31 pg (25-35); MEAN CORPUSCULAR HGB CONC 34 g/dL (31-37); MEAN CORPUSCULAR VOLUME 91 fL (79-100); MONO # 0.5 x10^3/uL (0.0-1.1); MONO % 8 % (0-9); NEUT # 4.6 x10^3/uL (1.8-7.7); NEUT % 74 % (31-73); PLATELET COUNT 271 x10^3/uL (140-400); RED BLOOD COUNT 4.83 x10^6/uL (4.30-5.70); RED CELL DISTRIBUTION WIDTH 13.7 % (11.5-14.5); WHITE BLOOD COUNT 6.3 x10^3/uL (4.0-11.0)
--- NOTE | 2020-01-18 18:40 | RAD ---
EXAM: AP View of the chest DATE: 01/18/2020 6:20 PM INDICATION: Shortness of air COMPARISON: 12/15/2019 08/02/2018 FINDINGS/ IMPRESSION: Heart is not enlarged. Aorta is tortuous. Lungs are clear. Background of emphysematous change. No pleural effusion or pneumothorax. Electronically signed by: Murtaza Horvath MD (01/18/2020 6:37 PM) [facility]
--- NOTE | 2020-01-18 18:43 | PHYS DOC ---
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 He also complains of right arm pain tightness or spasms. He does have contractures bilateral arms. He has a history of a TBI from a fall. He is wheelchair-bound. Patient denies chest pain, cough, travel, dizziness, headache, syncope, abdominal pain, nausea, vomiting, diarrhea, numbne ss or tingling, fever, recent fall or any injuries. He states he did not injure his right arm and is just tightening up and spasming. Patient has a history of COPD, VT, hypertension, chronic neck pain, TBI, smoker. He rates his arm spasm discomfort a 7 out of 10. (DANNY TEMPLETON M BLIND TEACHER) Review of Systems: Review of Systems: Constitutional: Denies fever or chills. [] Eyes: Denies change in visual acuity. [] HENT: Denies nasal congestion or sore throat. [] Respiratory: Denies cough. Positive for intermittent shortness of breath. [] Cardiovascular: Denies chest pain or edema. [] GI: Denies abdominal pain, nausea, vomiting, bloody stools or diarrhea. [] : Denies dysuria. [] Musculoskeletal: Denies back pain or joint pain. Positive for right arm spasm. [] Integument: Denies rash. [] Neurologic: Denies headache, focal weakness or sensory changes. [] Endocrine: Denies polyuria or polydipsia. [] Lymphatic: Denies swollen glands. [] Psychiatric: Denies depression or anxiety. [] (DANNY TEMPLETON M BLIND TEACHER) Heart Score: Risk Factors: Risk Factors: DM, Current or recent (<one month) smoker, HTN, HLP, family history of CAD, obesity. Risk Scores: Score 0 - 3: 2.5% MACE over next 6 weeks - Discharge Home Score 4 - 6: 20.3% MACE over next 6 weeks - Admit for Clinical Observation Score 7 - 10: 72.7% MACE over next 6 weeks - Early Invasive Strategies (DANNY TEMPLETON APRN) Allergies: Allergies: Allergies Coded Allergies Type Severity Reaction Last Updated Verified No Known Drug Allergies 08/01/18 No (DANNY TEMPLETON APRN) Physical Exam: PE: Constitutional: Well developed, well nourished, no acute distress, non-toxic appearance. [] HENT: Normocephalic, atraumatic, bilateral external ears normal, oropharynx mois t, no oral exudates, nose normal. [] Eyes: PERRLA, EOMI, conjunctiva normal, no discharge. [] Neck: Normal range of motion, no tenderness, supple, no stridor. [] Cardiovascular:Heart rate regular rhythm, no murmur [] Lungs & Thorax: Bilateral upper breath sounds clear and lower diminished to auscultation [] Abdomen: Bowel sounds normal, soft, no tenderness, no masses, no pulsatile masses. [] Skin: Warm, dry, no erythema, no rash. [] Back: No tenderness, no CVA tenderness. [] Extremities: No tenderness, no cyanosis, no clubbing, ROM intact, no edema. Bilateral upper extremity contractures. [] Neurologic: Alert and oriented X 3, normal motor function, normal sensory function, no focal deficits noted. [] Psychologic: Affect normal, judgement normal, mood normal. [] (DANNY TEMPLETON APRN) Current Patient Data: Labs: Laboratory Tests Test 01/18/20 18:22 White Blood Count 6.3 x10^3/uL (4.0-11.0) Red Blood Count 4.83 x10^6/uL (4.30-5.70) Hemoglobin 15.1 g/dL (13.0-17.5) Hematocrit 44.1 % (39.0-53.0) Mean Corpuscular Volume 91 fL (79-100) Mean Corpuscular Hemoglobin 31 pg (25-35) Mean Corpuscular Hemoglobin Concent 34 g/dL (31-37) Red Cell Distribution Width 13.7 % (11.5-14.5) Platelet Count 271 x10^3/uL (140-400) Neutrophils (%) (Auto) 74 % (31-73) H Lymphocytes (%) (Auto) 16 % (24-48) L Monocytes (%) (Auto) 8 % (0-9) Eosinophils (%) (Auto) 2 % (0-3) Basophils (%) (Auto) 1 % (0-3) Neutrophils # (Auto) 4.6 x10^3/uL (1.8-7.7) Lymphocytes # (Auto) 1.0 x10^3/uL (1.0-4.8) Monocytes # (Auto) 0.5 x10^3/uL (0.0-1.1) Eosinophils # (Auto) 0.1 x10^3/uL (0.0-0.7) Basophils # (Auto) 0.0 x10^3/uL (0.0-0.2) Laboratory Tests 01/18/20 18:22 Vital Signs: Vital Signs Date Time Temp Pulse Resp B/P (MAP) Pulse Ox O2 Delivery O2 Flow Rate FiO2 01/18/20 17:00 98.1 102 20 163/72 (102) 97 Room Air 98.1 (DANNY TEMPLETON APRN) EKG: EK and read by Dr. Boyd is sinus rhythm and no STEMI. [] (DANNY TEMPLETON APRN) Radiology/Procedures: Radiology/Procedures: [] Impression: [facility] [address] [place], [place] [id number] IMAGING REPORT Signed PATIENT: DIANE CABRERA ACCOUNT: [id number] : 1960 LOCATION: ER AGE: 59 SEX: M EXAM STATUS: REG ER ORD. PHYSICIAN: DANNY TEMPLETON APRN REASON: soa PROCEDURE: PORTABLE CHEST 1V EXAM: AP View of the chest DATE: 01/18/2020 6:20 PM INDICATION: Shortness of air COMPARISON: 12/15/2019 08/02/2018 FINDINGS/ IMPRESSION: Heart is not enlarged. Aorta is tortuous. Lungs are clear. Background of emphysematous change. No pleural effusion or pneumothorax. Electronically signed by: Murtaza Gonzalez MD (01/18/2020 6:37 PM) [facility] DICTATED and SIGNED BY: MURTAZA GONZALEZ MD DATE: 01/18/201836 (DANNY TEMPLETON APRN) Course & Med Decision Making: Course & Med Decision Making Pertinent Labs and Imaging studies reviewed. (See chart for details) See HPI. No tenderness to bilateral upper or lower extremities. No unilateral swelling of any of his extremities. Again the patient denies any injury to his extremities or falls. Skin pink warm and dry. Alert and oriented x4. Speaks in full complete sentences. He answers all my questions appropriately. Radial pulse strong present. Cap refills are less than 2 seconds. Chest x-ray shows no acute findings. Troponin is normal. EKG shows no STEMI. Patient states he has not had shortness of breath or chest pain since he has been here. Patient rates his arm pain at a 3 out of 10 prior to fentanyl being given. Patient is discharged home to follow-up with his primary care provider. [] (DANNY TEMPLETON APRN) Course & Med Decision Making I have reviewed the PA/CAP JEWEL PLATE ASSEMBLER's note and Plan of Care. I was available for c onsultation as needed during the patient's visit in the emergency department. I agree with the clinical impression, plans and disposition. (EVER BOYD MD) Dragon Disclaimer: Dragvicenta Disclaimer: This electronic medical record was generated, in whole or in part, using a voice recognition dictation system. (DANNY TEMPLETON APRN) Departure Departure Impression: Primary Impression: Arm pain, right Disposition: HOME, SELF-CARE Condition: STABLE Referrals: UNKNOWN PCP NAME (PCP) Patient Instructions: Muscle Cramps Additional Instructions: Follow-up with your primary care physician as soon as possible. Take all your medications as they are as prescribed. Justicifation of Admission Dx: Justifications for Admission: Justification of Admission Dx: N/A (DANNY TEMPLETON APRN) Justification of Admission Dx: N/A (EVER BOYD MD) DANNY TEMPLETON APRN Jan 18, 2020 18:43 EVER BOYD MD Jan 18, 2020 21:14
[2020-01-18 19:41] LABS: CALCIUM 9.2 mg/dL (8.5-10.1); CREATININE 0.8 mg/dL (0.7-1.3); GFR 118.9; POTASSIUM 3.4 mmol/L (3.5-5.1)
[2020-01-18 19:47] LABS: ALBUMIN 3.7 g/dL (3.4-5.0); ALBUMIN/GLOBULIN RATIO 0.9 (1.0-1.7); TOTAL BILIRUBIN 0.5 mg/dL (0.2-1.0); TOTAL PROTEIN 7.6 g/dL (6.4-8.2)
[2020-01-18] MEDS ORDERED: fentaNYL PF VIAL 100 MCG/2 ML VIAL IVP ONE (20:15)
[2020-01-18 22:53] LABS: AMPHETAMINE/METHAMPHETAMINE NEG (NEG); BARBITURATES NEG (NEG); BENZODIAZEPINES NEG (NEG); CANNABINOIDS NEG (NEG); COCAINE POS (NEG); METHADONE NEG (NEG); OPIATES NEG (NEG); PHENCYCLIDINE POS (NEG)
[2020-01-18 23:55] VITALS: BP 171/76
--- NOTE | 2020-01-19 08:23 | EKG ---
[facility] [address] [place] [address] Test Date: 2020-01-18 Test Time: 18:07:57 Pat Name: DIANE CABRERA Department: Room: Gender: M Script Reader: : 1960 Requested By: DANNY TEMPLETON Order Number: [id number] Reading MD: Measurements Intervals [place] Rate: 100 P: 74 CA: 196 QRS: -65 QRSD: 104 T: 90 QT: 292 QTc: 379 Interpretive Statements SINUS RHYTHM ABNORMAL LEFT AXIS DEVIATION LEFT ANTERIOR FASCICULAR BLOCK QRS(T) CONTOUR ABNORMALITY CONSIDER ANTEROSEPTAL MYOCARDIAL DAMAGE T ABNORMALITY IN HIGH LATERAL LEADS ABNORMAL ECG RI6.02 No previous ECG available for comparison
== END 2020-01-18 23:59 | disposition home or self-care (01) ==
LOC: ER 16:59
DX: M79.601 Pain in right arm (principal); M24.542 Contracture, left hand; M24.541 Contracture, right hand; G89.29 Other chronic pain; F17.200 Nicotine dependence, unspecified, uncomplicated; J44.9 Chronic obstructive pulmonary disease, unspecified; I10 Essential (primary) hypertension; I25.2 Old myocardial infarction; Z87.820 Personal history of traumatic brain injury
CPT/HCPCS: 36415; 71045; 80053; 80307; 83690; 83880; 84484; 85025; 85379; 93005; 96374; 99285; J3010